=== PATIENT | male | born 1945 | race Caucasian/White ===

== ENCOUNTER 2018-04-10 08:39 | Emergency (ER) | payer OTHER ==
[2018-04-10] MEDS ORDERED: ATROPINE SULF 1 MG/10 ML SYR IV ONE (08:51)
[2018-04-10 09:07] LABS: Absolute Lymphocytes (CBC) 1.4 K/uL (0.7-4.9); Absolute Monocytes 0.6 K/uL (0.1-1.3); Absolute Neutrophil 2.9 K/uL (1.8-8.0); Basophils % 1.2 % (0-1.3); Eosinophils % 1.9 % (0-4.4); Hematocrit 35.8 % (39.6-49.0); MCV 86.3 fL (80-100); Monocytes % 12.1 % (3.3-12.3); RBC Red Blood Cell Count 4.15 M/uL (4.33-5.43)
[2018-04-10 09:39] LABS: Potassium 3.9 mmol/L (3.5-5.1)
[2018-04-10 09:41] LABS: Thyroid Stimulating Hormone 4.08 uIU/mL (0.36-3.74)
[2018-04-10] MEDS ORDERED: NA CHLORIDE 0.9% 500 ML ONE (09:57)
--- NOTE | 2018-04-10 10:06 | ER ---
Nurse's Notes [facility] Name: Demond Tobin Age: 73 yrs Sex: Male : 1945 Arrival Date: 04/10/2018 Time: 08:42 Bed 4 Private MD: Diagnosis: Bradycardia, unspecified;Subclinical Hypothyroidism;Dehydration Presentation: 04/10 08:42 Presenting complaint: Patient states: Sent from Dr. Horton' office for low heart rate ss and possibly transfer to [facility] for pacemaker placement. Transition of care: [employer] [facility] [employer] office (Dr. Horton). Onset of symptoms is unknown. Risk Assessment: Do you want to hurt yourself or someone else? Patient reports no desire to harm self or others. Initial Sepsis Screen: Does the patient meet any 2 criteria? No. Patient's initial sepsis screen is negative. Does the patient have a suspected source of infection? No. Patient's initial sepsis screen is negative. Care prior to arrival: None. 08:42 Method Of Arrival: Wheelchair ss 08:42 Acuity: TOMY 2 ss Historical: - Allergies: 09:11 No Known Allergies; ph - Home Meds: 09:11 amlodipine oral [Active]; Metformin Oral [Active]; Xarelto Oral [Active]; ph - PMHx: 08:57 Atrial Fib; Diabetes - IDDM; Hypertension; bradycardia; ss 10:52 Diabetes - NIDDM; sg - Immunization history:: Adult Immunizations up to date. - Social history:: Smoking status: Patient/guardian denies using tobacco. - Family history:: not pertinent. - Ebola Screening: : Patient denies exposure to infectious person Patient denies travel to an Ebola-affected area in the 21 days before illness onset. - Hospitalizations: : No recent hospitalization is reported. Screenin:03 Abuse screen: Denies threats or abuse. Denies injuries from another. Nutritional ph screening: No deficits noted. Tuberculosis screening: No symptoms or risk factors identified. Fall Risk None identified. Assessment: 08:50 General: Appears in no apparent distress. comfortable, slender, well groomed, Behavior ph is calm, cooperative, appropriate for age. Pain: Denies pain. Neuro: Level of Consciousness is awake, alert, obeys commands, Oriented to person, place, time, situation, Denies weakness dizziness. Cardiovascular: Reports fatigue, Denies chest pain, lightheadedness, nausea, palpitations, shortness of breath, Capillary refill < 3 seconds in bilateral fingers Patient's skin is warm and dry. Rhythm is sinus bradycardia. Respiratory: Airway is patent Respiratory effort is even, unlabored, Respiratory pattern is regular, symmetrical. GI: No signs and/or symptoms were reported involving the gastrointestinal system. Patient currently denies nausea, vomiting. Derm: Skin is intact, is healthy with good turgor, Skin is pink, warm \T\ dry. Musculoskeletal: Circulation, motion, and sensation intact. Range of motion: intact in all extremities. 09:36 Reassessment: Patient appears in no apparent distress at this time. Patient and/or hb family updated on plan of care and expected duration. Pain level reassessed. Patient is alert, oriented x 3, equal unlabored respirations, skin warm/dry/pink. HR 40-55, Dr. Acharya aware. 09:55 Reassessment: HR 30s, Dr. Acharya aware. hb 10:30 Reassessment: Patient appears in no apparent distress at this time. Patient and/or sg family updated on plan of care and expected duration. Pain level reassessed. Patient is alert, oriented x 3, equal unlabored respirations, skin warm/dry/pink. acceptance to transferring facility at this time, report has been called, pt and pt family updated on POC, awaiting transport, no new orders received, will continue to monitor Patient denies pain at this time. Cardiovascular: Capillary refill < 3 seconds in bilateral fingers Patient's skin is warm and dry. Rhythm is sinus bradycardia. Respiratory: Airway is patent Respiratory effort is even, unlabored, Respiratory pattern is regular, symmetrical. Derm: Skin is pink, warm \T\ dry. Vital Signs: 08:45 BP 182 / 63; Pulse 35; Resp 16; Temp 97.7; Pulse Ox 99% on R/A; Weight 111.58 kg; ph Height 6 ft. 0 in. (182.88 cm); Pain 0/10; 09:35 BP 153 / 91; Pulse 43; Resp 15; Pulse Ox 100% on R/A; hb 10:00 BP 152 / 91; Pulse 36; Resp 16; Pulse Ox 100% on R/A; hb 10:30 BP 159 / 69; Pulse 36 MON; Resp 14 S; Temp 97.7; Pulse Ox 99% ; Pain 0/10; sg 08:45 Body Mass Index 33.36 (111.58 kg, 182.88 cm) ph 10:30 notified of pt VS sg ED Course: 08:42 Patient arrived in ED. rn 08:42 Rubén Acharya MD is Attending Physician. rn 08:50 Inserted saline lock: 20 gauge in right antecubital area, using aseptic technique. ph Blood collected. 08:51 EKG done, by ED staff, reviewed by Rubén Acharya MD. em1 08:56 Triage completed. ss 08:57 Arm band placed on right wrist. ss 09:02 Patient has correct armband on for positive identification. Placed in gown. Bed in low ph position. Call light in reach. Side rails up X 1. lead project engineer on. Pulse ox on. NIBP on. 09:06 EKG done, by manager technical. reviewed by Rubén Acharya MD Repeat EKG. at1 10:43 Eduar Armstrong RN is Primary Nurse. sg 11:09 pt report given to JENISE Fleming. sg Administered Medications: 08:55 Drug: Atropine 0.5 mg Route: IVP; Site: right antecubital; ph 09:16 Follow up: Response: No adverse reaction; Cardiac rhythm is unchanged; Hr increased to ph 50, rhythm remains sinus odell 09:58 Drug: NS 0.9% 500 ml Route: IV; Rate: bolus; Site: right antecubital; ss 10:45 Follow up: Response: No adverse reaction; IV Status: Completed infusion; IV Intake: sg 500ml Intake: 10:45 IV: 500ml; Total: 500ml. sg Outcome: 10:06 ER care complete, transfer ordered by . rn 11:58 Patient left the ED. ss Signatures: Eduar Armstrong, RN JENISE sg Rubén Acharya MD MD rn Martinez, Eric em1 Ira Whitfield RN RN Anastasia Teran, residential sales manager EKG Tat1 Maria Esther Gonsalez RN RN Erlinda Noe RN RN hb
--- NOTE | 2018-04-10 10:06 | EDPHYS ---
Physician Documentation [facility] Name: Demond Tobin Age: 73 yrs Sex: Male : 1945 Arrival Date: 04/10/2018 Time: 08:42 Bed 4 Private MD: ED Physician Rubén Acharya HPI: 04/10 08:43 This 73 yrs old Male presents to ER via Unassigned with complaints of rn dizziness, slow heart rate. 08:43 The patient presents with dizziness, lightheadedness. Onset: The symptoms/episode rn began/occurred at an unknown time. Modifying factors: The symptoms are alleviated by nothing, the symptoms are aggravated by standing up. Severity of symptoms: At their worst the symptoms were mild in the emergency department the symptoms have improved. The patient has experienced similar episodes in the past. The patient has been recently seen by a physician:. Sent here by Dr. Horton for transfer for pacemaker placement, unable to perform here, patient has been told for last 1.5 years needs pacemaker, has put it off, lately with dizziness when standing, no chest pain/sob/syncope, HR consistently in 30s, feels fine right now, has Afib, on xarelto.. Historical: - Allergies: 09:11 No Known Allergies; ph - Home Meds: 09:11 amlodipine oral [Active]; Metformin Oral [Active]; Xarelto Oral [Active]; ph - PMHx: 08:57 Atrial Fib; Diabetes - IDDM; Hypertension; bradycardia; ss 10:52 Diabetes - NIDDM; sg - Immunization history:: Adult Immunizations up to date. - Social history:: Smoking status: Patient/guardian denies using tobacco. - Family history:: not pertinent. - Ebola Screening: : Patient denies exposure to infectious person Patient denies travel to an Ebola-affected area in the 21 days before illness onset. - Hospitalizations: : No recent hospitalization is reported. ROS: 08:43 Constitutional: Negative for fever, chills, and weight loss, Eyes: Negative for injury, rn pain, redness, and discharge, Neck: Negative for injury, pain, and swelling, Cardiovascular: Negative for chest pain, palpitations, and edema, Respiratory: Negative for shortness of breath, cough, wheezing, and pleuritic chest pain, Abdomen/GI: Negative for abdominal pain, nausea, vomiting, diarrhea, and constipation, MS/Extremity: Negative for injury and deformity, Skin: Negative for injury, rash, and discoloration, Neuro: Negative for headache, weakness, numbness, tingling, and seizure. Exam: 08:43 Constitutional: This is a well developed, well nourished patient who is awake, alert, rn and in no acute distress. Head/Face: Normocephalic, atraumatic. Neck: Trachea midline, no thyromegaly or masses palpated, and no cervical lymphadenopathy. Cardiovascular: irregular, bradycardic, no murmur Respiratory: Lungs have equal breath sounds bilaterally, clear to auscultation and percussion. No rales, rhonchi or wheezes noted. No increased work of breathing, no retractions or nasal flaring. Abdomen/GI: Soft, non-tender. No distension or tympany. No guarding or rebound. No evidence of tenderness throughout. MS/ Extremity: Pulses equal, no cyanosis. Neurovascular intact. Full, normal range of motion. Equal circumference. Neuro: Awake and alert, GCS 15, oriented to person, place, time, and situation. Cranial nerves II-XII grossly intact. Motor strength 5/5 in all extremities. Sensory grossly intact. Vital Signs: 08:45 BP 182 / 63; Pulse 35; Resp 16; Temp 97.7; Pulse Ox 99% on R/A; Weight 111.58 kg; ph Height 6 ft. 0 in. (182.88 cm); Pain 0/10; 09:35 BP 153 / 91; Pulse 43; Resp 15; Pulse Ox 100% on R/A; hb 10:00 BP 152 / 91; Pulse 36; Resp 16; Pulse Ox 100% on R/A; hb 10:30 BP 159 / 69; Pulse 36 MON; Resp 14 S; Temp 97.7; Pulse Ox 99% ; Pain 0/10; sg 08:45 Body Mass Index 33.36 (111.58 kg, 182.88 cm) ph 10:30 notified of pt VS sg MDM: 08:42 Patient medically screened. rn 10:04 Differential diagnosis: cardiac arrhythmia, idiopathic dizziness, near-syncope, rn bradycardia. Data reviewed: vital signs, nurses notes, lab test result(s), EKG, and as a result, I will admit patient. Counseling: I had a detailed discussion with the patient and/or guardian regarding: the historical points, exam findings, and any diagnostic results supporting the discharge/admit diagnosis, lab results, the need for further work-up and treatment in the hospital, the need to transfer to another facility, for higher level of care, [facility] does not immediately have the required specialist. ED course: Pt asymptomatic, good response to atropine, currently HR in 40s, transfer under way to [facility] for pacemaker.. 04/10 08:43 Order name: CBC with Diff; Complete Time: 09:42 rn 04/10 08:43 Order name: Basic Metabolic Panel; Complete Time: 09:42 rn 04/10 08:43 Order name: Troponin (emerg Dept Use Only); Complete Time: 09:42 rn 04/10 08:43 Order name: TSH; Complete Time: 09:42 rn 04/10 08:43 Order name: T4 Free; Complete Time: 09:42 rn 04/10 08:43 Order name: IV Start; Complete Time: 08:53 rn 04/10 08:43 Order name: EKG; Complete Time: 08:44 rn 04/10 08:43 Order name: EKG - Nurse/Tech; Complete Time: 08:51 rn 04/10 09:34 Order name: EKG Electrocardiogram EDMS Administered Medications: 08:55 Drug: Atropine 0.5 mg Route: IVP; Site: right antecubital; ph 09:16 Follow up: Response: No adverse reaction; Cardiac rhythm is unchanged; Hr increased to ph 50, rhythm remains sinus odell 09:58 Drug: NS 0.9% 500 ml Route: IV; Rate: bolus; Site: right antecubital; ss 10:45 Follow up: Response: No adverse reaction; IV Status: Completed infusion; IV Intake: sg 500ml Disposition: 04/10/18 10:06 Transfer ordered to [facility]. Diagnosis are Bradycardia, unspecified, Subclinical Hypothyroidism, Dehydration. - Reason for transfer: Higher level of care. - Accepting physician is Dr. Melara. - Condition is Stable. - Problem is an ongoing problem. - Symptoms are unchanged. Signatures: Dispatcher [employer] EDMS Eduar Armstrong RN RN sg Nieto, Roman, MD MD rn Smirch, Shelby, RN RN ss Maria Esther Gonsalez RN RN ph Corrections: (The following items were deleted from the chart) 10:06 10:06 04/10/2018 10:06 Transfer ordered to [facility]. Diagnosis is rn Bradycardia, unspecified. Reason for transfer: Higher level of care. Accepting physician is Dr. Melara. Condition is Stable. Problem is an ongoing problem. Symptoms are unchanged. rn 11:58 10:06 04/10/2018 10:06 Transfer ordered to [facility]. Diagnosis is ss Bradycardia, unspecified; Subclinical Hypothyroidism; Dehydration. Reason for transfer: Higher level of care. Accepting physician is Dr. Melara. Condition is Stable. Problem is an ongoing problem. Symptoms are unchanged. rn
[2018-04-10 12:04] VITALS: TEMP 97.7
[2018-04-10 12:08] VITALS: BP 159/69; O2SAT 99
--- NOTE | 2018-04-10 12:45 | EKG ---
Test Date: 2018-04-10 Test Time: 08:45:02 Blood Typer: LANA MEASUREMENT RESULTS: Intervals: Rate: 37 [place]: QRSD: 144 QT: 520 QTc: 408 [place]: P: [place]: QRS: -11 T: 26 INTERPRETIVE STATEMENTS: Atrial fibrillation with slow ventricular response Right bundle branch block Abnormal ECG Compared to ECG 10/26/2016 11:58:22 No significant changes Electronically Signed On 04-10-18 12:44:12 CDT by Bobby Thompson
--- NOTE | 2018-04-10 12:45 | EKG ---
Test Date: 2018-04-10 Test Time: 08:51:01 Coroner Technician: LANA MEASUREMENT RESULTS: Intervals: Rate: 51 MA: QRSD: 140 QT: 488 QTc: 449 [place]: P: MA: QRS: -28 T: 16 INTERPRETIVE STATEMENTS: Atrial fibrillation with slow ventricular response with premature ventricular or aberrantly conducted complexes Right bundle branch block Abnormal ECG Compared to ECG 04/10/2018 08:45:02 Ventricular premature complex(es) now present Electronically Signed On 04-10-18 12:44:10 CDT by Bobby Thompson
== END 2018-04-10 11:58 | disposition short-term general hospital (02) ==
LOC: ER 08:39
DX: R00.1 Bradycardia, unspecified (principal); E86.0 Dehydration; E02 Subclinical iodine-deficiency hypothyroidism; I10 Essential (primary) hypertension; E11.9 Type 2 diabetes mellitus without complications; I48.91 Unspecified atrial fibrillation; Z79.01 Long term (current) use of anticoagulants
CPT/HCPCS: 36415; 80048; 84439; 84443; 84484; 85025; 93005; 96361; 96374; 99284

== ENCOUNTER 2018-07-03 07:17 | Day surgery (SDC) | payer OTHER ==
--- OUTSIDE RECORDS SUMMARY | 2018-07-03 07:20 | XMS REPORT | Clinical Summary ---
:1945 Author Organization [facility] Address [address] [place] [address] Care Team Providers Name Role Phone Asked, No Pcp Primary Care Provider Unavailable Allergies No Known Allergies Medications Medication Sig Dispensed Refills Start Date End Date Status zolpidem (AMBIEN) 10 Take 10 mg by 0 Active mg tablet mouth nightly. atorvastatin Take 40 mg by 0 Active (LIPITOR) 40 MG mouth daily. tablet rivaroxaban (XARELTO) Take 20 mg by 0 Active 20 mg tablet mouth daily. amLODIPine (NORVASC) Take 5 mg by 0 Active 5 mg tablet mouth daily. metFORMIN Take by mouth 2 (two) times a day with meals. 1,000 mg in the morning 0 Active (GLUCOPHAGE) 1,000 mg 1,500 mg in the evening tablet traMADol (ULTRAM) 50 Take 0.5 tablets 60 tablet 0 04/12/2018 04/26/2018 mg tablet (25 mg total) by mouth every 6 (six) hours as needed for moderate pain for up to 14 days. minocycline (MINOCIN) Take 1 capsule 6 capsule 0 04/12/2018 04/15/2018 100 MG capsule (100 mg total) by mouth 2 (two) times a day for 3 days. Active Problems Problem Noted Date Bradycardia 04/10/2018 Chronic atrial fibrillation 04/10/2018 Bradyarrhythmia 04/10/2018 Encounters Date Type Specialty Care Team Description 04/11/2018 Surgery Procedural Hilaria Hall Pacemaker insertion Cardiology MD Betina new or replacement [37204 (CPT)] 04/10/2018 - Hospital Encounter Cardiology Jinny Winn 04/12/2018 MD Mirtha 04/10/2018 Intake Access N/A after 07/02/2017 Social History Tobacco Use Types Packs/Day Years Used Date Never Assessed Sex Assigned at Date Recorded Not on file Job Start Date Occupation Industry Not on file Not on file Not on file Travel History Travel Start Travel End No recent travel history available. Last Filed Vital Signs Vital Sign Reading Time Taken Blood Pressure 165/90 04/12/2018 9:47 AM CDT Pulse 60 04/12/2018 9:47 AM CDT Temperature 36.6 C (97.9 F) 04/12/2018 9:47 AM CDT Respiratory Rate 20 04/12/2018 9:47 AM CDT Oxygen Saturation 98% 04/12/2018 9:47 AM CDT Inhaled Oxygen Concentration - - Weight 105 kg (232 lb 5 oz) 04/12/2018 6:23 AM CDT Height - - Body Mass Index - - Plan of Treatment Health Maintenance Due Date Last Done Comments COLON CANCER SCREENING 1993 SHINGRIX VACCINE (1 of 2) 1993 ZOSTER VACCINE 2003 PNEUMOCOCCAL POLYSACCHARIDE VACCINE AGE 65 AND OVER 01/07/2008 PNEUMOCOCCAL-13 01/07/2008 INFLUENZA VACCINE 03/21/2018 Implants Implanted Type Area Chemical Supervisor Device Shelf Model / Identifier Expiration Serial / Date [facility] P[facility] Lead Is-1 Bipolar 59cm - [id number] Cardiac Pacing N/A: BOSTON 07/10/2019 [id number] / Implanted: 04/11/2018 (Quantity not on file) Leads or N/A SCIENTIFIC- [id number] / Electrodes or [id number] Accessories Envelope Pcemkr Antbactl Fully Resorb Aigisrxr - [id number] Cardiovascular N/A: [employer] [id number] / Implanted: 04/11/2018 (Quantity not on file) Implants N/A / Generator, Accolade Mri Sr - [id number] PACEMAKERS N/A: BOSTON 2018 [id number] / Implanted: 04/11/2018 (Quantity not on file) N/A SCIENTIFIC- CRM [id number] / [id number] Procedures Procedure Name Priority Date/Time Associated Comments Diagnosis ECG PRE/POST OP Routine 04/12/2018 5:24 Results for this AM CDT procedure are in the results section. POC GLUCOSE Routine 04/11/2018 9:51 Results for this PM CDT procedure are in the results section. XR CHEST 1 VW PORTABLE Routine 04/11/2018 2:25 Results for this PM CDT procedure are in the results section. POC GLUCOSE Routine 04/11/2018 2:08 Results for this PM CDT procedure are in the results section. EP PACEMAKER INSERTION Routine 04/11/2018 1:15 Results for this NEW OR REPLACEMENT PM CDT procedure are in the results section. ECHOCARDIOGRAM 2D Routine 04/11/2018 7:30 Results for this COMPLETE W MMODE AM CDT procedure are in SPECTRAL COLOR DOPPLER the results (96783) section. ECG 12-LEAD Routine 04/11/2018 5:03 Results for this AM CDT procedure are in the results section. XR CHEST 1 VW PORTABLE Routine 04/10/2018 6:57 Results for this PM CDT procedure are in the results section. THYROID STIMULATING Routine 04/10/2018 2:34 Results for this HORMONE PM CDT procedure are in the results section. ZZESTIMATED GFR Routine 04/10/2018 2:34 Results for this PM CDT procedure are in the results section. PHOSPHORUS LEVEL Routine 04/10/2018 2:34 Results for this PM CDT procedure are in the results section. MAGNESIUM LEVEL Routine 04/10/2018 2:34 Results for this PM CDT procedure are in the results section. COMPREHENSIVE METABOLIC Routine 04/10/2018 2:34 Results for this PANEL PM CDT procedure are in the results section. PARTIAL THROMBOPLASTIN Routine 04/10/2018 2:34 Results for this TIME (PTT) PM CDT procedure are in the results section. PROTHROMBIN TIME WITH Routine 04/10/2018 2:34 Results for this INR PM CDT procedure are in the results section. HC COMPLETE BLD COUNT Routine 04/10/2018 2:34 Results for this W/AUTO DIFF PM CDT procedure are in the results section. POC GLUCOSE Routine 04/10/2018 1:00 Results for this PM CDT procedure are in the results section. after 07/02/2017 Results ECG Pre/Post Op-Tomorrow (04/12/2018 5:24 AM CDT) Ventricular rate 67 [facility] Atrial rate 67 [facility] QRSD interval 180 [facility] QT interval 482 [facility] QTC interval 509 [facility] QRS axis 1 -83 [facility] T wave axis 91 [facility] EKG impression Electronic ventricular pacemaker-In automated comparison with ECG of 11-APR-2018 05:03,-Electronic ventricular pacemaker has replaced Idioventricular rhythm-Vent. rate has increased BY36 BPM-Electronically Signed By Esperanza Frank MD ([id number]) on [facility] 04/14/2018 5:19:02 AM Performing Organization Address City/[facility]/Zipcode Phone Number [facility] [address] [place] [address] POC glucose (04/11/2018 9:51 PM CDT)Only the most recent of3 resultswithin the time period is included. POC glucose 111 (H) 65 - 99 mg/dL [facility] DEPARTMENT OF PATHOLOGY Comment: AND GENOMIC MEDICINE [facility] Notified RN Meter ID: [id number] Supervisor [employer]: [place] Performing Organization Address City/[facility] Corporation[facility] Phone Number [facility] DEPARTMENT OF PATHOLOGY AND [address] [place] [address] GENOMIC MEDICINE XR Chest 1 Vw Portable (04/11/2018 2:25 PM CDT)Only the most recent of2 resultswithin the time period is included. Narrative Performed At EXAMINATION:XR CHEST 1 VW PORTABLE [facility] CLINICAL HISTORY:Pneumothorax COMPARISON:04/10/2018 IMPRESSION: 1.A left subclavian unipolar pacemaker has been placed since the previous study. There is no evidence of pneumothorax. 2.The heart is moderately enlarged. The aorta is minimally atherosclerotic. 3.Patchy volume loss and infiltration are present at both lung bases and are slightly increased compared to the previous study. There are no pleural effusions. [facility]-[id number] Procedure Note Interface, Radiology Results Incoming - 04/11/2018 3:16 PM CDT EXAMINATION: XR CHEST 1 VW PORTABLE CLINICAL HISTORY: Pneumothorax COMPARISON: 04/10/2018 IMPRESSION: 1. A left subclavian unipolar pacemaker has been placed since the previous study. There is no evidence of pneumothorax. 2. The heart is moderately enlarged. The aorta is minimally atherosclerotic. 3. Patchy volume loss and infiltration are present at both lung bases and are slightly increased compared to the previous study. There are no pleural effusions. [facility]-[id number] Performing Organization Address [facility] Corporationcofl Phone Number [facility] [address] [place] [address] Cv electrophysiology procedure (04/11/2018 1:15 PM CDT) Narrative Performed At TITLE OF PROCEDURE: CUPID Single-chamber pacemaker. PREOPERATIVE DIAGNOSES: 1.Chronic atrial fibrillation. 2.Symptomatic bradycardia. 3.Complete heart block causing #2. POSTOPERATIVE DIAGNOSES: 1.Chronic atrial fibrillation. 2.Symptomatic bradycardia. 3.Complete heart block causing #2. PROCEDURES PREFORMED: 1.IV conscious sedation. 2.Single-chamber pacemaker placement. BRIEF HISTORY AND CLINICAL BACKGROUND: This is a 73-year-old man who is a patient of Dr. Giuseppe Horton.Dr. Horton called me yesterday because the patient came into his office with a several day history of weakness and dizziness.He was noted to have a heart rate of 30 to 33 bpm, very regular, presumptively in a complete heart block with a junctional escape beat. The patient was sent to [facility] and transferred to [facility] for permanent pacemaker.Echocardiogram performed this morning preliminarily shows a normal ejection fraction. The patient comes in for a single chamber pacemaker placement. PROCEDURE: Informed consent was obtained.Intravenous antibiotics were infused appropriately.The chest was prepped and draped in the usual sterile fashion and local anesthesia was achieved with 1% lidocaine.An upper extremity venogram was performed to identify the location of the axillary and subclavian vein and access was achieved.Guide wires were introduced under fluoroscopic guidance and advanced into the inferior vena cava. Using a sharp knife, cautery, and blunt dissection, a pocket was formed below the plane of the pectoralis fascia.The RV and atrial leads were placed into the venous system using standard technique.The RV pace/sense lead was placed into the RV apex and tested.After the thresholds were deemed adequate the lead was anchored in place.Maximum output pacing was performed to ensure that there was no diaphragmatic stimulation, and none was seen.The lead was anchored in place using 0-Ethibond sutures around the lead collar. A bipolar screw-in lead was affixed into the right atrium.Sensing and pacing thresholds were then performed.After they were found to be adequate, maximum output pacing was performed to ensure that there was no diaphragmatic stimulation, and none was seen.The lead was anchored in place using 0-Ethibond sutures around the lead collar. Fluoroscopy was repeated to ensure proper lead placement.The pacemaker pocket was visually, manually, and radiographically inspected to ensure there were no gauze or sponges in the pocket.It was then washed using antibiotic solution. Gloves and drapes were changed as needed.The pacemaker generator packet was then opened and was attached to the leads and the set screws were tightened. Each lead was gently tugged upon to ensure it was affixed within the header. After proper pacemaker function was confirmed, the lead slack and pacemaker were placed in the pocket.The pacemaker was anchored to the pectoralis muscle using 0-Ethibond suture.The skin incision was then closed in layers using 0-Vicryl sutures.Final skin closure was achieved with stainless steel miko and skin adhesive. COMPLICATIONS: None. FINDINGS: 1.The right ventricular apical pacing lead is a [place] [employer] MRI, model 7742, serial number [id number].Measured R-waves 10 millivolts, pacing threshold 0.5 volt, current 0.6 mA, impedance 848 ohms. 2.The pacemaker is a [place] [employer] Accolade model L310, serial number [id number]. 3.Estimated blood loss less than 10 mL. CONCLUSIONS: Successful single chamber pacemaker. RECOMMENDATIONS: IV antibiotics and resume oral anticoagulation in 24 to 48 hours. Performing Organization Address City/State/[facility] Corporationcode Phone Number [employer] [address] [place] [address] Echocardiogram complete w contrast and 3D if needed (04/11/2018 7:30 AM CDT) Narrative Performed At [facility] Echocardiography Report [address] [place] [address] Pat.Name:JOON LYON Pat.ID:[id number] .Date: 04/11/2018 Refer.MD:JINNY WINN MD Exam Time: 7:04:00 AMStudy Type:Routine Echo Height:71inWeight: 242lb BSA: 2.29 m2 DOBAge:1945,73Y Sex: MALEBP:167/74 HR:30 bpmSonogrphr: Rosy Cartwright RDCS Pat. Stat.:Inpatient Room:[facility] Study Status:Final Echo Event ID:[id number] Order ID:[id number] Reason for Study:ARRYTHMIA, AFIB Procedures:2D Echo, Colorflow Doppler, Intravenous Optison Contrast SUMMARY: LV size is mildly enlarged. LV EF is normal. RV systolic function is normal. Estimated PA systolic pressure is 38-43 mmHg, assuming a mean RAP of 15-20 mmHg. FINDINGS: LV: LV size is mildly enlarged. There is mild eccentric LV hypertrophy.LV EF is normal. Overall wall motion is normal.Estimated EF is 60-64%. RV: RV size is normal. RV systolic function is normal. LA: LA volume is moderately enlarged. RA: RA volume is severely enlarged. AO: Aortic root diameter is normal. DARRELL: Trace posterior pericardial effusion. AV: Mild thickening and calcification of AV leaflets. MV: Mild mitral annular calcification. PV: No structural PV abnormalities noted. TV: No structural TV abnormalities noted. Mild tricuspid regurgitation Garza: Unable to assess diastolic function. Other:Estimated PA systolic pressure is 38-43 mmHg, assuming a meanRAP of 15-20 mmHg. MEASUREMENTS: 2D Parasternal Long Capron Ao An2.2 cmLVPWd1 cm LVOT 2.2 cmLA Ds4.9 cm LVIDd6.1 cmIndex2.7 cm/m Ao Rtd 4 cm Index1.7 cm/m LVIDs3.8 cm LV Srdn447.8 g(122-174) LV%fs 38.2 % LVM Wlint926.3 g/m2 IVSd 1.1 cmRWT0.3 LA Sng Plane LA Area 29.7 cm2(8.8-23.4) LA Vol97.1 ml Index42.4 ml/m LA LngAx 7.8 cm RA Sng Plane RA Area 31.2 cm2(8.3-19.5) RA Vol 113.7 ml Index49.6 ml/m RA LngAx 7.3 cm DOPPLER LVOT Stroke Vol LVOT 2.2 cmLVOT CO4.1 l/min LVOT TVI32.7 cmLVOT CI1.8 l/m/m2 LVOT Tm415 drlxVU62 bpm LVOT SV124.2 ml Signed 04/11/2018 03:10 PM Larry Gonzalez M.D. Procedure Note Interface, Radiology Results In - 04/11/2018 3:10 PM CDT Echocardiography Report [address] [place] [address] Pat.Name: JOON LYON Pat.ID: [id number] St.Date: 04/11/2018 Refer.MD: JINNY WINN MD Exam Time: 7:04:00 AM Study Type:Routine Echo Height: 71in Weight: 242lb BSA: 2.29 m2 Age: 3 1945,73Y Sex: MALE BP: 167/74 HR: 30 bpm Sonogrphr: Rosy Cartwright RDCS Pat. Stat.:Inpatient Room: [facility] Study Status:Final Echo Event ID:[id number] Order ID: [id number] Reason for Study:ARRYTHMIA, AFIB Procedures:2D Echo, Colorflow Doppler, Intravenous Optison Contrast SUMMARY: LV size is mildly enlarged. LV EF is normal. RV systolic function is normal. Estimated PA systolic pressure is 38-43 mmHg, assuming a mean RAP of 15-20 mmHg. FINDINGS: LV: LV size is mildly enlarged. There is mild eccentric LV hypertrophy. LV EF is normal. Overall wall motion is normal. Estimated EF is 60-64%. RV: RV size is normal. RV systolic function is normal. LA: LA volume is moderately enlarged. RA: RA volume is severely enlarged. AO: Aortic root diameter is normal. DARRELL: Trace posterior pericardial effusion. AV: Mild thickening and calcification of AV leaflets. MV: Mild mitral annular calcification. PV: No structural PV abnormalities noted. TV: No structural TV abnormalities noted. Mild tricuspid regurgitation Garza: Unable to assess diastolic function. Other: Estimated PA systolic pressure is 38-43 mmHg, assuming a mean RAP of 15-20 mmHg. MEASUREMENTS: 2D Parasternal Long Capron Ao An 2.2 cm LVPWd 1 cm LVOT 2.2 cm LA Ds 4.9 cm LVIDd 6.1 cm Index 2.7 cm/m Ao Rtd 4 cm Index 1.7 cm/m LVIDs 3.8 cm LV Mass 270.8 g (122-174) LV%fs 38.2 % LVM Index 118.3 g/m2 IVSd 1.1 cm RWT 0.3 LA Sng Plane LA Area 29.7 cm2 (8.8-23.4) LA Vol 97.1 ml Index 42.4 ml/m LA LngAx 7.8 cm RA Sng Plane RA Area 31.2 cm2 (8.3-19.5) RA Vol 113.7 ml Index 49.6 ml/m RA LngAx 7.3 cm DOPPLER LVOT Stroke Vol LVOT 2.2 cm LVOT CO 4.1 l/min LVOT TVI 32.7 cm LVOT CI 1.8 l/m/m2 LVOT Tm 415 msec HR 33 bpm LVOT SV 124.2 ml Signed 04/11/2018 03:10 PM Larry Gonzalez M.D. Performing Organization Address City/State/Zipcode Phone Number [facility] [address] [place] [address] ECG 12 lead (04/11/2018 5:03 AM CDT) Ventricular rate 31 [facility] Atrial rate 31 [facility] QRSD interval 152 [facility] QT interval 550 [facility] QTC interval 395 [facility] QRS axis 1 65 [facility] T wave axis 36 [facility] EKG impression Idioventricular rhythm-Right bundle branch [facility] block-Abnormal ECG-In automated comparison with ECG of 11-APR-2018 05:02,-No significant change was found- Performing Organization Address City/[facility] Corporationcode Phone Number [facility] [address] [place] [phone] Estimated GFR (04/10/2018 2:34 PM CDT) GFR Non Af Amer 73 mL/min/1.73 m2 [facility] DEPARTMENT OF PATHOLOGY AND GENOMIC MEDICINE GFR Af Amer 88 mL/min/1.73 m2 [facility] DEPARTMENT OF Comment: PATHOLOGY AND GENOMIC Chronic kidney disease: <60 mL/min/1.73m2 MEDICINE Kidney failure: <15 mL/min/1.73m2 The estimated GFR is calculated from the IDMS-traceable Modification of Diet in Renal Disease Equation. The accuracy of the calculation is poor when the creatinine is normal. Calculated values >90 mL/min/1.73m2 are not reported. This equation has not been validated in children (<18 years), women, the elderly (>70 years), or ethnic groups other than Caucasians and Americans. Specimen Plasma specimen Performing Organization Address [facility] Corporationcode Phone Number [facility] DEPARTMENT OF PATHOLOGY AND [address] [place] [phone] [facility] Partial thromboplastin time, activated (04/10/2018 2:34 PM CDT) PTT 32.5 23.0 - 36.0 sec [facility] DEPARTMENT OF PATHOLOGY Comment: AND 72xuan MEDICINE PTT therapeutic range for unfractionated heparin is 61.0-112.0 seconds which corresponds to Anti-Xa 0.3-0.7 U/ml. Specimen Blood Performing Organization Address [facility]/Zipcode Phone Number [facility] DEPARTMENT OF PATHOLOGY AND [address] [place] [phone] [facility] Prothrombin time with INR (04/10/2018 2:34 PM CDT) Prothrombin time 18.7 (H) 12.0 - 15.0 sec [facility] DEPARTMENT OF PATHOLOGY AND GENOMIC MEDICINE INR 1.5 [facility] DEPARTMENT OF Comment: PATHOLOGY AND GENOMIC The International Normalized Ratio (INR) is a therapeutic MEDICINE monitoring tool for patients who are stable on oral anticoagulant therapy. An INR of 2.0-3.0 is suggested for deep vein thrombosis/pulmonary embolism. Specimen Blood Performing Organization Address City/State/Zipcode Phone Number [facility] DEPARTMENT OF PATHOLOGY AND [address] [place] [address] GENOMIC MEDICINE CBC with platelet and differential (04/10/2018 2:34 PM CDT) WBC 4.17 (L) 4.50 - 11.00 k/uL [facility] DEPARTMENT OF PATHOLOGY AND GENOMIC MEDICINE RBC 3.97 (L) 4.40 - 6.00 m/uL [facility] DEPARTMENT OF PATHOLOGY AND GENOMIC MEDICINE HGB 11.0 (L) 14.0 - 18.0 g/dL [facility] DEPARTMENT OF PATHOLOGY AND GENOMIC MEDICINE HCT 34.7 (L) 41.0 - 51.0 % [facility] DEPARTMENT OF PATHOLOGY AND GENOMIC MEDICINE MCV 87.4 82.0 - 100.0 fL [facility] DEPARTMENT OF PATHOLOGY AND GENOMIC MEDICINE MCH 27.7 27.0 - 34.0 pg [facility] DEPARTMENT OF PATHOLOGY AND GENOMIC MEDICINE MCHC 31.7 31.0 - 37.0 g/dL [facility] DEPARTMENT OF PATHOLOGY AND GENOMIC MEDICINE RDW - SD 47.9 37.0 - 55.0 fL [facility] DEPARTMENT OF PATHOLOGY AND GENOMIC MEDICINE MPV 13.0 8.8 - 13.2 fL [facility] DEPARTMENT OF PATHOLOGY AND GENOMIC MEDICINE Platelet count 99 (L) 150 - 400 k/uL [facility] DEPARTMENT OF PATHOLOGY AND GENOMIC MEDICINE Nucleated RBC 0.00 /100 WBC [facility] DEPARTMENT OF PATHOLOGY AND GENOMIC MEDICINE Neutrophils 50.5 39.0 - 69.0 % [facility] DEPARTMENT OF PATHOLOGY AND GENOMIC MEDICINE Lymphocytes 35.7 25.0 - 45.0 % [facility] DEPARTMENT OF PATHOLOGY AND GENOMIC MEDICINE Monocytes 12.2 (H) 0.0 - 10.0 % [facility] DEPARTMENT OF PATHOLOGY AND GENOMIC MEDICINE Eosinophils 1.2 0.0 - 5.0 % [facility] DEPARTMENT OF PATHOLOGY AND GENOMIC MEDICINE Basophils 0.2 0.0 - 1.0 % [facility] DEPARTMENT OF PATHOLOGY AND GENOMIC MEDICINE Immature granulocytes 0.2Comment: 0.0 - 1.0 % [facility] DEPARTMENT OF "Immature PATHOLOGY AND GENOMIC granulocytes" MEDICINE (promyelocytes, myelocytes, metamyelocytes) Specimen Blood Performing Organization Address City/State/[facility] Corporation[facility] Phone Number [facility] DEPARTMENT OF PATHOLOGY AND [address] [place] [phone] [place] [address] Thyroid stimulating hormone (04/10/2018 2:34 PM CDT) TSH 2.27 0.27 - 4.20 uIU/mL [facility] DEPARTMENT OF PATHOLOGY AND GENOMIC MEDICINE Specimen Plasma specimen Performing Organization Address [facility] Corporationcofl Phone Number [facility] DEPARTMENT OF PATHOLOGY AND [address] [place] [address] MEDICINE Phosphorus level (04/10/2018 2:34 PM CDT) Phosphorus 3.1 2.4 - 4.5 mg/dL [facility] DEPARTMENT OF PATHOLOGY AND GENOMIC MEDICINE Specimen Plasma specimen Performing Organization Address [facility] Phone Number [facility] DEPARTMENT OF PATHOLOGY AND [address] [place] [address] [facility] Magnesium level (04/10/2018 2:34 PM CDT) Magnesium 1.8 1.6 - 2.4 mg/dL [facility] DEPARTMENT OF PATHOLOGY AND GENOMIC MEDICINE Specimen Plasma specimen Performing Organization Address [facility] Phone Number [facility] DEPARTMENT OF PATHOLOGY AND [address] [place] [address] MEDICINE Comprehensive metabolic panel (04/10/2018 2:34 PM CDT) Sodium 140 135 - 148 mEq/L [facility] DEPARTMENT OF PATHOLOGY AND GENOMIC MEDICINE Potassium 4.4 3.5 - 5.0 mEq/L [facility] DEPARTMENT OF PATHOLOGY AND GENOMIC MEDICINE Chloride 106 98 - 112 mEq/L [facility] DEPARTMENT OF PATHOLOGY AND GENOMIC MEDICINE CO2 23 (L) 24 - 31 mEq/L [facility] DEPARTMENT OF PATHOLOGY AND GENOMIC MEDICINE Anion gap 11@ANIO 7 - 15 mEq/L [facility] DEPARTMENT OF PATHOLOGY AND GENOMIC MEDICINE BUN 18 8 - 23 mg/dL [facility] DEPARTMENT OF PATHOLOGY AND GENOMIC MEDICINE Creatinine 1.0 0.7 - 1.2 mg/dL [facility] DEPARTMENT OF PATHOLOGY AND GENOMIC MEDICINE Glucose 104 (H) 65 - 99 mg/dL [facility] DEPARTMENT OF PATHOLOGY AND GENOMIC MEDICINE Calcium 8.9 8.8 - 10.2 mg/dL [facility] DEPARTMENT OF PATHOLOGY AND GENOMIC MEDICINE Protein 7.6 6.3 - 8.3 g/dL [facility] DEPARTMENT OF Comment: PATHOLOGY AND GENOMIC [place] 4.6-7.0 g/dL MEDICINE 1 week 4.4-7.6 g/dL 7 months-1year5.1-7.3 g/dL 1-2 years5.6-7.5 g/dL >3 years6.0-8.0 g/dL 18-150 6.3-8.3 g/dL Albumin 3.5 3.5 - 5.0 g/dL [facility] DEPARTMENT OF PATHOLOGY AND GENOMIC MEDICINE A/G ratio 0.9 0.7 - 3.8 [facility] DEPARTMENT OF PATHOLOGY AND GENOMIC MEDICINE Alkaline phosphatase 93 40 - 129 U/L [facility] DEPARTMENT OF PATHOLOGY AND GENOMIC MEDICINE AST 22 10 - 50 U/L [facility] DEPARTMENT OF PATHOLOGY AND GENOMIC MEDICINE ALT 19 5 - 50 U/L [facility] DEPARTMENT OF PATHOLOGY AND GENOMIC MEDICINE Total bilirubin 0.9 0.0 - 1.2 mg/dL [facility] DEPARTMENT OF PATHOLOGY AND GENOMIC MEDICINE Specimen Plasma specimen Performing Organization Address City/State/Zipcode Phone Number [facility] DEPARTMENT OF PATHOLOGY AND [address] [place] [address] GENOMIC MEDICINE after 07/02/2017 Insurance Payer Benefit Plan / Group Subscriber ID Type Phone Address MEDICARE MEDICARE PART A AND B xxxxxxxxxx Medicare [place], [place] COMMERCIAL MISC MISC COMMERCIAL xxxxxxxxxxxx Commercial Advance Directives Patient has advance care planning documents, and code status on file. For more information, please contact:Ramon Montes De [address]ca[address] [place] [address] Code Status Date Activated Date Inactivated Comments Full Code 04/10/2018 2:33 PM 04/12/2018 3:53 PM Code Status decision reached by: Patient
[2018-07-03] MEDS ORDERED: NA CHLORIDE 0.9% 1,000 ML ONE (07:34)
[2018-07-03 08:07] VITALS: TEMP 98.7; O2SAT 94
[2018-07-03] MEDS ORDERED: PROPOFOL 200 MG/20 ML VIAL IV ONE (09:20)
[2018-07-03] MEDS ORDERED: LIDOCAINE 1% MPF 5 ML VIAL ONE (09:20)
[2018-07-03 10:51] VITALS: BP 138/56
--- NOTE | 2018-07-03 11:18 | ENDO RPT ---
[address], [address] COLONOSCOPY PROCEDURE REPORT EXAM DATE: 07/03/2018 PATIENT NAME: Demond Tobin MR #: [id number] BIRTHDATE: 1945 ATTENDING: Ray Ruiz Dr STATUS: outpatient MESSAGING ARCHITECT: Lisa Canas and Edel Rocha RN INDICATIONS: The patient is a 73 yr old Male here for a colonoscopy due to personal history of colon polyps PROCEDURE PERFORMED: Colonoscopy with snare polypectomy MEDICATIONS: Per Anesthesia. ESTIMATED BLOOD LOSS: None CONSENT: The patient understands the risks and benefits of the procedure and understands that these risks include, but are not limited to: sedation, allergic reaction, infection, perforation and/or bleeding. Alternative means of evaluation and treatment include, among others: physical exam, x-rays, and/or surgical intervention. The patient elects to proceed with this endoscopic procedure. DESCRIPTION OF PROCEDURE: During intra-op preparation period all mechanical medical equipment was checked for proper function. Hand hygiene and appropriate measures for infection prevention was taken. Procedure, possible complications, alternatives including, but not limited to possibility of bleeding, perforation, tear, infection, sepsis, need for surgery, need for blood transfusion, were explained to the patient. After the risks, benefits and alternatives of the procedure were thoroughly explained, Informed consent was verified, confirmed and timeout was successfully executed by the treatment team. The patient was placed in the left lateral position. A digital rectal exam was performed and revealed external hemorrhoids. After appropriate level of anesthesia, the scope was passed. The [id number] ([id number]) endoscope was introduced through the anus and advanced to the cecum, which was identified by both the appendix and ileocecal valve. The quality of the prep was poor. The instrument was then slowly withdrawn as the colon was fully examined. Scope withdrawal time was 8 minutes. COLON FINDINGS: A sessile polyp measuring 6 mm in size was found in the sigmoid colon. A polypectomy was performed with a cold snare. Small internal and external hemorrhoids were found. Retroflexed views revealed small hemorrhoids. The scope was then completely withdrawn from the patient and the procedure terminated. ADVERSE EVENTS: There were no complications. IMPRESSIONS: 1. 6 mm sessile polyp in the sigmoid colon; polypectomy was performed with a cold snare 2. Small internal and external hemorrhoids 3. Intubation to cecum RECOMMENDATIONS: 1. await biopsy results 2. avoid NSAIDS for 2 weeks 3. fiber rich diet RECALL: No further colonoscopy(s) due to age (73 y.o.) unless alarm symptoms occur. Ray Ruiz Dr eSigned: Ray Ruiz Dr 07/03/2018 10:43 AM cc: Giuliano Zayas CPT CODES: ICD9 CODES: 1. 455.5 External hemorrhoids with other complication 2. 211.3 Benign neoplasm of colon PATIENT NAME: Demond TobinKaterine MR#: [id number]
== END 2018-07-03 11:05 | disposition home or self-care (01) ==
LOC: OR 07:17
PROVIDERS: ATTEND Internal Medicine Gastroenterology
PROC: 0DBN8ZX Excision of Sigmoid Colon, Via Natural or Artificial Opening Endoscopic, Diagnostic (ICD-10-PCS; principal; 2018-07-03 08:00)
DX: D12.5 Benign neoplasm of sigmoid colon (principal); K64.8 Other hemorrhoids; K64.4 Residual hemorrhoidal skin tags; E11.9 Type 2 diabetes mellitus without complications; I10 Essential (primary) hypertension; E78.5 Hyperlipidemia, unspecified; Z86.010 Personal history of colon polyps; Z95.0 Presence of cardiac pacemaker
CPT/HCPCS: 45385; 82962; 88305; J2704; J7030

== ENCOUNTER 2020-01-14 02:01 | Observation (INO) | payer OTHER ==
--- OUTSIDE RECORDS SUMMARY | 2020-01-14 02:03 | XMS REPORT | Clinical Summary ---
:1945 Author Organization [facility] Address [address] [place] [address] Care Team Providers Name Role Phone Asked, Pcp Primary Care Provider Unavailable Allergies No Known Allergies Medications Medication Sig Dispensed Refills Start Date End Date Status zolpidem (AMBIEN) 10 mg Take 10 mg by 0 Active tablet mouth nightly. atorvastatin (LIPITOR) Take 40 mg by 0 Active 40 MG tablet mouth daily. rivaroxaban (XARELTO) Take 20 mg by 0 Active 20 mg tablet mouth daily. amLODIPine (NORVASC) 5 Take 5 mg by 0 Active mg tablet mouth daily. metFORMIN (GLUCOPHAGE) Take by mouth 2 (two) times a day with meals. 1,000 mg in the morning 0 Active 1,000 mg tablet 1,500 mg in the evening Active Problems Problem Noted Date Bradycardia 04/10/2018 Chronic atrial fibrillation 04/10/2018 Bradyarrhythmia 04/10/2018 Social History Tobacco Use Types Packs/Day Years Used Date Never Assessed Sex Assigned at Date Recorded Not on file Job Start Date Occupation Industry Not on file Not on file Not on file Travel History Travel Start Travel End No recent travel history available. Last Filed Vital Signs Not on file Plan of Treatment Health Maintenance Due Date Last Done Comments SHINGLES VACCINES (#1) 1993 65+ PNEUMOCOCCAL VACCINE (1 of 2 - PCV13) 01/07/2008 INFLUENZA VACCINE 03/21/2020 Implants Implanted Type Area Track Oiler Device Shelf Model / Identifier Expiration Serial / Date Lot Ingevity Mri Pacing Lead Is-1 Bipolar 59cm - [id number] Cardiac Pacing N/A: [employer] 07/10/2019 [id number] / Implanted: 04/11/2018 at [facility] (Quantity not on file) Heydi ds or N/A SCIENTIFIC- CRM [id number] / Electrodes or [id number] Accessories Envelope Pcemkr Antbactl Fully Resorb Aigisrxr - [id number] Cardiovascular N/A: [employer] [id number] / Implanted: 04/11/2018 at [facility] (Quantity not on file) Implants N/A / Generator, Accolade Mri Sr - [id number] PACEMAKERS N/A: BOSTO N 11/24/2018 [id number] / Implanted: 04/11/2018 at [facility] (Quantity not on file) N/A SCIENTIFIC- CRM [id number] / [id number] Results Not on fileafter 01/13/2019 Insurance Payer Benefit Plan / Subscriber ID Effective Phone Address T ype Group Dates MEDICARE MEDICARE PART A xxxxxxxxxx 2007-Pres [place], [place] Medicare AND B ent COMMERCIAL MISC MISC COMMERCIAL xxxxxxxxxxxx 2016-Pres Commercial ent Advance Directives For more information, please contact: [phone] Type Date Recorded Patient Facilities Engineer Explanati on Advance Directives, Living Will and Medical Power of Rim Technician Code Status Date Activated Date Inactivated Comments Full Code 04/10/2018 2:33 PM 04/12/2018 3:53 PM Code Status decision reached by: Patient
[2020-01-14] MEDS ORDERED: ASPIRIN 81 MG CHEWABLE TABLET ONE (02:53)
[2020-01-14 03:05] LABS: Basophils % 0.5 % (0-1.3); Hematocrit 36.9 % (39.6-49.0); Lymphocytes % 12.1 % (15.3-44.8); MPV 11.4 fL (7.6-11.3); RBC Red Blood Cell Count 4.41 M/uL (4.33-5.43)
[2020-01-14 03:09] LABS: Protime INR 1.55
[2020-01-14 03:17] LABS: BUN Blood Urea Nitrogen 16 mg/dL (7-18); Bicarbonate 26 mmol/L (21-32); Glucose Level 152 mg/dL (74-106); Lipase 93 U/L (73-393); Magnesium 1.5 mg/dL (1.8-2.4); Potassium 4.1 mmol/L (3.5-5.1); Sodium Level 135 mmol/L (136-145); Troponin (Emerg Dept Use Only) < 0.02 ng/mL (0.0-0.045)
[2020-01-14] MEDS ORDERED: NA CHLORIDE 0.9% 500 ML ONE (03:44)
[2020-01-14] MEDS ORDERED: MAGNESIUM SULFATE 1 gm IVPB 1 GM/100 ML BAG IV ONE (03:48)
[2020-01-14 05:47] LABS: Barbiturates NEGATIVE (NEGATIVE); Benzodiazepines NEGATIVE (NEGATIVE); Cocaine NEGATIVE (NEGATIVE); METHAMPHETAM NEGATIVE (NEGATIVE); Methadone NEGATIVE (NEGATIVE); Opiates NEGATIVE (NEGATIVE); Phencyclidine NEGATIVE (NEGATIVE); THC Cannibis NEGATIVE (NEGATIVE)
[2020-01-14 06:02] LABS: Urine Blood 3+ (NEG); Urine Glucose TRACE (NEG); Urine Protein 3+ (NEG); Urine Specific Gravity >1.030 (1.005-1.030)
--- NOTE | 2020-01-14 07:08 | EKG ---
Test Date: 2020-01-14 Test Time: 02:12:44 Equipment Service Lead: ARLETTE MEASUREMENT RESULTS: Intervals: Rate: 61 IA: QRSD: 172 QT: 460 QTc: 463 [place]: P: IA: QRS: -73 T: 105 INTERPRETIVE STATEMENTS: Demand pacemaker, interpretation is based on intrinsic rhythm Wide QRS rhythm with occasional premature ventricular complexes Left axis deviation Left bundle branch block Abnormal ECG Compared to ECG 04/10/2018 08:51:01 Uncertain supraventricular rhythm now present Left-axis deviation now present Left bundle-branch block now present Atrial fibrillation no longer present Right bundle-branch block no longer present Electronically Signed On 01-14-20 07:07:51 CDT by Bobby Thompson
[2020-01-14] MEDS: INSULIN -REGULAR HUMAN 50 UNIT/0.5 ML ML SQ SCH ×4 (07:30→20:11)
[2020-01-14] MEDS ORDERED: ASPIRIN EC 81 MG TAB PO SCH (09:00)
[2020-01-14 09:34] VITALS: BMI 28.5
[2020-01-14] MEDS ORDERED: PNEUMOCOCCAL VACCINE 0.5 ML IMVAC ONE (10:00)
--- NOTE | 2020-01-14 10:58 | RAD REPORT ---
EXAM DESCRIPTION: RAD - Chest Single View - 01/14/2020 2:48 am CLINICAL HISTORY: CONGESTION COMPARISON: Two view chest January 2016 TECHNIQUE: AP portable chest image was obtained 01/14/2020 2:48 am . FINDINGS: No peripheral mass or consolidation. Single lead pacemaker has been placed since prior [place]. No focal mass or consolidation. Interstitial markings are prominent but not clearly different. He art size is prominent but stable. Vasculature within normal limits. No measurable pleural effusion an d no pneumothorax. No acute bony abnormality seen. No acute aortic findings suspected. IMPRESSION: No acute cardiopulmonary finding confirmed. Prominent interstitial pattern is not significantly different from the comparison study.
--- NOTE | 2020-01-14 11:01 | RAD REPORT ---
EXAM DESCRIPTION: RAD - Elbow Left 3 View - 01/14/2020 7:52 am CLINICAL HISTORY: PAIN, nontraumatic left elbow pain COMPARISON: None. FINDINGS: No fractures identified. No pathologic or destructive bone process. There is no dislocatio n or periosteal reaction noted. Patient has very advanced left elbow joint degenerative change. Rosemarie inal spurs are present at all joint spaces. Prior take ever calcifications are present anterior paula n of the radial head and along the posterior aspect of the distal humerus. Joint effusion is suspect ed. 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 No fracture or acute finding . Probable joint effusion.
--- NOTE | 2020-01-14 11:10 | RAD REPORT ---
EXAM DESCRIPTION: - CP - 01/14/2020 7:18 am CLINICAL HISTORY: tia COMPARISON: No comparisons TECHNIQUE: Real-time sonographic evaluation of bilateral carotid and vertebral systems was performed . Bahena scale and Doppler interrogation were performed with waveform tracing bilaterally. FINDINGS: Normal high resistance waveforms are noted in both external carotid arteries. The common c arotid arteries and internal carotid arteries show normal low resistance waveforms. Calcified plaquing changes are present in the right carotid bulb without significant luminal narrowin g. Left bulb calcified plaquing changes also present. Again, no significant luminal narrowing. ICA/CC A ratios measure 1.6 on the right and 1.9 on the left. These elevated ratios are not believed to be d ue to significant stenosis. Exam was technically limited. The patient was not able to fully cooperate with the examination. Vertebral arteries were poorly visualized. Velocity values and ratios were recorded and are retained in the patient's imaging records. IMPRESSION: Calcified plaquing changes are present in each carotid bulb. Exam was technically limited. No hemodynamically significant stenosis suspected. No evidence of a hemodynamically significant stenosis.
--- NOTE | 2020-01-14 17:38 | RAD REPORT ---
EXAM DESCRIPTION: CT - Ct Stroke Brain Wo Cont - 01/14/2020 2:53 am CLINICAL HISTORY: CONFUSED COMPARISON: None. TECHNIQUE: CT HEAD WITHOUT IV CONTRAST on 01/14/2020 2:07 AM CDT This exam was performed according to our departmental dose-optimization program, which includes autom ated exposure control, adjustment of the mA and/or kV according to patient size and/or use of iterati ve reconstruction technique. FINDINGS: There is no acute hemorrhage, mass effect or midline shift. Bahena-white differentiation is preserved. There is no hydrocephalus. There is no significant volume loss for age. There are mild pat ariana hypodensities within the periventricular and subcortical white matter, consistent with microangio pathic ischemic changes. The calvarium is intact. Orbits and globes are unremarkable. The paranasal sinuses are clear. Mastoid air cells are clear. IMPRESSION: No acute intracranial findings. Electronically signed by: Aron Rodrigues MD 01/14/2020 2:24 AM CDT Due to temporary technical issues with the PACS/Fluency reporting system, reports are being signed by the in house radiologist without review as a courtesy to ensure prompt reporting. The interpreting r adiologist is fully responsible for the content of the report.
--- NOTE | 2020-01-14 22:27 | CON ---
History Of Present Illness: A 75-year-old gentleman came in for rule out TIA, which he ruled out. H owsamuel, had traumatic catheterization and had some gross hematuria. He was on Xarelto at home. I dockery ve told the nurses to hold the Xarelto and the aspirin while he is here. He is able to pee. Nurse s aid it was red. However, he is stable. I feel like another catheterization may make this possible f alse passage worse. So we will leave him alone, let him urinate, hold the blood thinners, hydrate hi m until the urine clears. Allergies: NO KNOWN DRUG ALLERGIES. Medications: Takes Xarelto at home, aspirin, metformin, amlodipine. Medical History: History of atrial fibrillation, insulin-dependent diabetes mellitus, hypertension, bradycardia. Social History: Denies smoking, tobacco, no drug use. Review of Systems: Otherwise negative. Somewhat confused. Physical Examination: Vital Signs: Temperature 98.3, pulse 60, respirations 16, BP 170/81, 96% sat on room air. HEENT: Atraumatic, normocephalic. Lungs: Clear. Abdomen: Soft, nontender. : Both testicles well descended. Phallus normal. Some dried blood-stained underwear. Extremities: Normal range of motion. Laboratory Review: White count stable. H and H 12 and 36. Coagulation: PT elevated at 18, INR 1.6 , PTT 22. Chemistries: Essentially sodium low at 125, potassium 4.1, chloride 104, carbon dioxide 2 6, BUN 16, creatinine 1.0, GFR 72, glucose 152, calcium 8.5, magnesium 1.5, lipase 93. Urine shows p H 7.0, specific gravity 1.030, 2+ ketones, 3+ blood, nitrite negative, esterase negative. Assessment: Possible traumatic catheterization. Plan: Hold all blood thinners. Hydrate patient. Allow patient to void until clear. If he does not clear at all, he may need a procedure done. However, we will use it as the last resort. DAE/MODL Voice ID: [id number] Report ID: [id number]
[2020-01-15 06:31] LABS: BUN Blood Urea Nitrogen 13 mg/dL (7-18); Bicarbonate 24 mmol/L (21-32); Glucose Level 156 mg/dL (74-106); Magnesium 1.8 mg/dL (1.8-2.4); Potassium 3.7 mmol/L (3.5-5.1); Sodium Level 136 mmol/L (136-145)
[2020-01-15 06:34] LABS: HDL Cholesterol 49 mg/dL (40-60); LDL Cholesterol, Calculated 28 (<130)
[2020-01-15 06:35] LABS: Creatine Phosphokinase 63 U/L (39-308)
[2020-01-15 07:20] LABS: CKMB Creatine Kinase MB 1.2 ng/mL (0.3-3.6); Troponin I < 0.02 ng/mL (0.0-0.045)
[2020-01-15] MEDS: INSULIN -REGULAR HUMAN 50 UNIT/0.5 ML ML SQ SCH ×2 (07:30→12:38)
[2020-01-15 08:38] VITALS: O2SAT 98
[2020-01-15] MEDS ORDERED: AMLODIPINE 10 MG TAB PO SCH (09:00)
[2020-01-15] MEDS ORDERED: ATORVASTATIN 40 MG TAB PO SCH (09:00)
--- NOTE | 2020-01-15 09:08 | RAD REPORT ---
EXAM DESCRIPTION: CT - Head Brain Wo Cont - 01/15/2020 8:51 am CLINICAL HISTORY: tia Headache, drowsiness, CVA symptomology COMPARISON: Ct Stroke Brain Wo Cont dated 01/14/2020 TECHNIQUE: All CT scans are performed using dose optimization technique as appropriate and may inclu de automated exposure control or mA/KV adjustment according to patient size. FINDINGS: No intracranial hemorrhage, hydrocephalus or extra-axial fluid collection. Mild generalize d brain atrophy is present with mild periventricular and deep white matter chronic microvascular isch emic changes. No areas of brain edema or evidence of midline shift. The paranasal sinuses and mastoids are clear. The calvarium is intact. IMPRESSION: No acute intracranial abnormality. No suspicious interval change since comparative stud y.
[2020-01-15 13:29] VITALS: BP 155/75; TEMP 97.9
--- NOTE | 2020-01-15 13:38 | PN ---
The patient is doing better today. Urine is clear now, but still some blood. We will go in the righ t direction. We will continue management, hydration. Hold blood thinners for now. DAE/NOHEMY Voice ID: [id number] Report ID: [id number]
--- NOTE | 2020-01-15 15:52 | CON ---
Reason For Consultation: Consultation called because of possible TIA and confusion. History Of Present Illness: Mr. Tobin is a 75-year-old patient with atrial fibrillation, diabetes m ellitus, and hypertension, who is actually unable to get an MRI because of hardware, but anyway the p atient was determined to have some potential left-sided weakness and more confusion on top of a basel ine cognitive problem. His daughter actually said for perhaps about a year, he has had issues with r ecalling conversations, words, thoughts, locations of items, and directions when traveling and at [place] appeared confused and disoriented. At [facility], his brain CT scan which has been repea petra because he is unable to get the MRI was negative for any acute ischemic or hemorrhagic stroke. T he study identified mild generalized brain atrophy with mild periventricular and deep white matter ch ronic small-vessel ischemic disease. There was no acute ischemic or hemorrhagic change and the 2 CT scans were over 24 hours apart, and again he could not have an MRI because of neck hardware. Past Medical History: As indicated. Allergies: NO KNOWN DRUG ALLERGIES. Social History: The patient drank alcohol in the past. Actually reports there was an injury. He pl ayed football many years ago and injured his left side and has had chronic problems with the left mohsen ulder and his left elbow and actually now has a swollen and painful left elbow, which is being evalua petra further. X-ray did show some degenerative changes in the left elbow. Family History: Noncontributory. Home Medications: Xarelto, Lipitor 40 mg daily, aspirin, and Norvasc. The patient actually did have traumatic urine bleeding and is being followed by Dr. Hong who has held his Xarelto and aspirin. Review of Systems: Not reliable. Patient cannot give a consistent story. Physical Examination: Vital Signs: Blood pressure 155/81, pulse 60, respiratory rate 18, temperature 98.5, oxygen saturati on 98% on room air. General: Mr. Tobin is actually somewhat restless in bed. He actually did sit at the side of the be d and became more settled and followed instructions to do examination. HEENT: He appears normocephalic, atraumatic. Sclerae are anicteric. Oropharynx is moist and pink. Neck: Decreased range of motion in all directions following neck surgery. Neurologic: He does have some pain and then swelling in the left elbow. Has decreased ability to fl ex the forearm due to pain in his left elbow, but his wrist flexion/extension and remedial reading teacher on the left is normal. His motor in the right upper extremity is normal. In the lower extremities, he has full st rength. Sensation is stocking-glove loss to light touch and temperature in the legs and arms. Refle xes are depressed in upper and lower extremities. Coordination is slow but intact in upper and lower extremities. Patient will be ambulated with the physical therapist. Laboratory Studies: White blood cell count 8.2, hemoglobin 12.2, platelets 109. INR 1.55. Chemistr ies show sodium 136, potassium 3.7, chloride 104, carbon dioxide 24, BUN 13, creatinine 0.91, glucose ranged from 150 to 180, calcium 8.4. His TSH is 1.83. LDL cholesterol 28, HDL cholesterol 49, tota l cholesterol 88. Urinalysis showed 2+ ketones, 2+ blood, 3+ protein and his urine toxicology screen was negative. His electrocardiogram showed a demand pacemaker. His mini-mental status examination was actually done at bedside and his score was 14/30. He missed 3 for delayed verbal recall, 5 for orientation between time and place, and 4 being able to write or co py. Assessment: Mr. Tobin is a 75-year-old patient with a possible acute on chronic encephalopathy. He does seem to have a baseline potentially vascular dementia; however, Alzheimer disease is still a po ssibility. There are other considerations as well including vitamin deficiencies and autoimmune dise ases. He appears to have an acute on chronic issue, which may be related to possible infection, whic h has been ruled out for a urinary tract infection or a pneumonia. It is also possible he may have h ad a transient ischemic attack. His CT scan x2 is negative. In any event, the patient does have a b aseline moderate cognitive impairment. Plan: 1.Aspirin may restart once okayed by Dr. Hong in Urology. 2.Continue his Norvasc 10 mg daily. Continue Lipitor 40 mg at night. Continue with management of h is possible diabetes mellitus. Actually, he is on an insulin sliding scale while in the hospital. 3.The patient may be discharged home and outpatient can have an EEG and blood work for dementia labs when he follows up in clinic and may repeat a cognitive assessment, perhaps the [place] Cognitive A ssessment test at that time. We may also consider adding Aricept or Namenda to his regimen depending on how he is doing. DANIEL Voice ID: [id number] Report ID: [id number]
--- NOTE | 2020-01-15 19:35 | PN ---
Date of Progress Note: 01/15/2020 Subjective: Patient is considerably improved today both again mentally and physically. His elbow wa s dramatically improved; however, he still has some lack of extension and slight tenderness. He is d eveloping possibly a mild cellulitis on top of his and this will be referred to orthopedic surgeon once he is stabilized. His family was present for the discussion and he was informed it is not guy for him to be driving at this time, could be re-evaluated in the office in 48 hours, to abhijeet in off the medication of Ambien and Flexeril, to go back on his Xarelto and metformin 1000 mg and con tinued his blood pressure medication. His CT scan showed no change from the original 1 approximately 2 days ago. Blood counts are much better. I think he is stable enough to be discharged diagnosis other than the fact that he has displayed some changes associated with dementia, possible t hat he was a combination of the medication aforementioned dementia. He was discharged in fair condition. Final Diagnoses: Increased altered mental status and insulin-dependent diabetes mellitus, good contr ol; atrial fibrillation, good control; hematuria secondary to traumatic insertion of catheter; tendin itis of elbow. HR/MODL Voice ID: [id number] Report ID: [id number]
--- NOTE | 2020-01-15 19:35 | PN ---
Date of Progress Note: 01/14/2020 Patient actually seems somewhat better both physically and mentally today and according to his daught er, he is much improved from when he first came in mentally. He still shows memory deficit as he joyce l be worthwhile to repeat the CT scan to make sure there was no acute episode on top of the chronic c hanges associated with his memory loss and other features of dementia. He is seen by Neurology. Als o seen by Dr. Hong and felt that the hematuria was secondary to traumatic catheterization. Patient states he has been having some problems with urination for some time now and at 1 occasion had been o n Flomax. If in fact he continues to improve, there is some question as to diagnosis other than the chronic memory and behavior changes possibly associated with early dementia and whether he had an acu te episode he has tonight which made this presentation in the emergency room warranted is difficult t o say. In the meantime, his blood pressure and blood sugars are stable. He has been off his home me dications of Flexeril and Ambien and actually metformin as well. Possibility playing a pa rt in this acute episode is also a significant possibility. HR/MODL Voice ID: [id number] Report ID: [id number]
--- NOTE | 2020-01-20 12:55 | ER ---
Nurse's Notes [facility] Name: Demond Tobin Age: 75 yrs Sex: Male : 1945 Arrival Date: 01/14/2020 Time: 02:02 Bed 3 Private MD: Diagnosis: Transient cerebral ischemic attack, unspecified Presentation: 01/13 02:03 Chief complaint: EMS states: pt called for help because her , the pt, has sg been having visual hallucinations and saying things that do not make any sense to her. the pt is not sure the last time he was behaving in a normal fashion, per EMS. pt daughter on facetime via pt phone, states that the pt has a pacemaker and metal throughout his body, mainly in his neck and arms, she is unsure when the pt was normal as well due to her living out of town. Coronavirus screen: Proceed with normal triage. Ebola Screen: Patient negative for fever greater than or equal to 101.5 degrees Fahrenheit, and additional compatible Ebola Virus Disease symptoms Patient denies exposure to infectious person. Patient denies travel to an Ebola-affected area in the 21 days before illness onset. No symptoms or risks identified at this time. Initial Sepsis Screen: Does the patient meet any 2 criteria? No. Patient's initial sepsis screen is negative. Does the patient have a suspected source of infection? No. Patient's initial sepsis screen is negative. Risk Assessment: Do you want to hurt yourself or someone else? Patient reports no desire to harm self or others. 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 Onset of symptoms was January 14, 2020. Care prior to arrival: Glucose check: 139. Transition of care: patient was not received from another setting of care. 02:03 Method Of Arrival: EMS: [facility] sg 02:03 Acuity: TOMY 2 sg Historical: - Allergies: 02:06 No Known Allergies; sg - PMHx: 02:06 Atrial Fib; BRADYCARDIA; Diabetes - IDDM; Diabetes - NIDDM; Hypertension; sg - Immunization history:: Adult Immunizations up to date. - Social history:: Smoking status: Patient denies any tobacco usage or history of. Patient/guardian denies using alcohol, street drugs, The patient lives with family. - Family history:: not pertinent. Screenin:14 Abuse screen: Denies threats or abuse. Denies injuries from another. Nutritional rv screening: No deficits noted. Tuberculosis screening: No symptoms or risk factors identified. Fall Risk None identified. 02:56 The patient has not been NPO before screening. The patient is alert, able to follow ea commands. The patient does not exhibit slurred or garbled speech The patient is not exhibiting difficulty speaking. The patient does not exhibit difficulty understanding words. The patient is able to swallow own secretions with no drooling or need for suction. Patient tolerated one teaspoon of water. No drooling, immediate coughing, gurgling, or clearing of the throat was noted. The patient tolerated 90mL of water. No drooling, immediate coughing, gurgling, or clearing of the throat was noted. The patient passed the bedside swallow screening. Oral medications may be given as ordered. Contact Physician for further diet orders. Assessment: 02:13 General: Appears comfortable, Behavior is calm, cooperative. Pain: Complains of pain in rv left arm. Neuro: Level of Consciousness is awake, alert, obeys commands, Oriented to person, place, time, situation. Cardiovascular: Patient's skin is warm and dry. Rhythm is ventricular pacer. Respiratory: Airway is patent Breath sounds are clear bilaterally. Derm: Skin is intact. 03:05 Reassessment: Patient and/or family updated on plan of care and expected duration. Pain ea level reassessed. Patient is alert, oriented x 3, equal unlabored respirations, skin warm/dry/pink. 04:00 Reassessment: Patient and/or family updated on plan of care and expected duration. Pain ea level reassessed. Patient is alert, oriented x 3, equal unlabored respirations, skin warm/dry/pink. 05:55 Reassessment: Patient and/or family updated on plan of care and expected duration. Pain ea level reassessed. Patient is alert, oriented x 3, equal unlabored respirations, skin warm/dry/pink. Awaiting on room assignment. 06:49 Reassessment: Patient and/or family updated on plan of care and expected duration. Pain ea level reassessed. Pt resting with eyes closed respirations even and unlabored. Pt oriented x 2, has bouts of confusion. reports he had two urinary incontinent episode at home, pt reports having a hard time starting a stream of urine. 07:25 Reassessment: Pt A\T\Ox1, to self. Pt c/o left elbow pain, left elbow appears swollen, jl7 mild redness and warmth noted. ERD notified, x-ray ordered. 08:15 Reassessment: Pt's unable to drive, doesn't have friends or family in the area to jl7 call to come get her. Spoke to Amirah, pt's daughter, who reports he has been neurologically declining since around October 2019 but it hasn't been this bad. His mother and father had dementia, unsure if they had Alzheimer's. Daughter on her way from [place], [place] and will be here in about 5 hours. Charge Nurse Luz Marina notified, given daughter's information and request for neurologist to call daughter with update if he comes to see pt prior to daughter's arrival. Vital Signs: 02:02 BP 153 / 82; Pulse 87; Resp 18; Temp 97.7; Pulse Ox 98% on R/A; Weight 95.25 kg; Height sg 6 ft. 0 in. (182.88 cm); Pain 0/10; 02:58 BP 152 / 80; Pulse 61; Resp 18; Pulse Ox 98% on R/A; ea 03:26 BP 151 / 73; Pulse 62; Resp 18; Pulse Ox 98% on R/A; ea 04:03 BP 139 / 74; Pulse 61; Resp 16; Pulse Ox 95% ; ea 04:49 BP 155 / 86; Pulse 60; Resp 18; Pulse Ox 97% on R/A; ea 06:05 BP 151 / 81; Pulse 61; Resp 18; Pulse Ox 97% on R/A; ea 02:02 Body Mass Index 28.48 (95.25 kg, 182.88 cm) sg ED Course: 02:00 Arm band placed on. sg 02:02 Patient arrived in ED. sg 02:05 Madalyn Sy MD is Attending Physician. ma2 02:06 Triage completed. sg 02:13 Gerson Sue RN is Primary Nurse. rv 02:14 Patient has correct armband on for positive identification. minesweeping officer on. Pulse rv ox on. NIBP on. 02:18 CT Stroke Brain w/o Contrast In Process Unspecified. EDMS 02:38 Inserted saline lock: 20 gauge in left antecubital area, using aseptic technique. ea 02:43 Initial lab(s) drawn, by me, sent to lab. sg 02:45 Straight cath inserted, using sterile technique, 16 Fr. no urine output at this time, ea bladder scan showed less than 50 mls in bladder. 02:48 Stroke CXR 1 View In Process Unspecified. EDMS 04:00 Giuliano Zayas MD is Hospitalizing Provider. ma2 06:05 No provider procedures requiring assistance completed. Patient admitted, IV remains in ea place. Administered Medications: 02:56 Drug: Aspirin Chewable Tablet 324 mg Route: PO; ea 05:20 Follow up: Response: No adverse reaction ea 03:43 Drug: NS 0.9% 500 ml Route: IV; Rate: bolus; Site: left forearm; ea 06:06 Follow up: Response: No adverse reaction; IV Status: Completed infusion; IV Intake: ea 500ml 03:43 Drug: Magnesium Sulfate 1 grams Route: IVPB; Infused Over: 1 hrs; Site: left forearm; ea 06:06 Follow up: Response: No adverse reaction; IV Status: Completed infusion ea Intake: 06:06 IV: 500ml; Total: 500ml. ea Outcome: 04:00 Decision to Hospitalize by Provider. ma2 06:05 Instructed on the need for admit, Demonstrated understanding of instructions. ea 08:15 Admitted to Tele accompanied by tech, family with patient, via stretcher, room 431, jl7 with chart, Report called to JENISE Ralph 08:15 Condition: stable 08:15 Discharge instructions given to patient, family, Instructed on the need for admit, Demonstrated understanding of instructions. 08:22 Patient left the ED. jl7 Signatures: Dispatcher [employer] EDMS Eduar Armstrong RN Dolly Adkins RN RN jl7 Xochitl Rodriguez RN RN ea Alzahri, Mohammad, MD MD ma2 Gerson Sue RN RN rv Corrections: (The following items were deleted from the chart) 06:51 06:49 Reassessment: Patient and/or family updated on plan of care and expected ea duration. Pain level reassessed. Patient is alert, oriented x 3, equal unlabored respirations, skin warm/dry/pink. ea
--- NOTE | 2020-01-20 12:56 | EDPHYS ---
Physician Documentation [facility] Name: Demond Tobin Age: 75 yrs Sex: Male : 1945 Arrival Date: 01/14/2020 Time: 02:02 Bed 3 Private MD: ED Physician Madalyn Sy HPI: 01/13 02:40 This 75 yrs old Male presents to ER via EMS with complaints of Altered Mental ma2 Status. 02:40 The patient presents with confusion. Onset: The symptoms/episode began/occurred ma2 gradually, 1 day(s) ago. Associated signs and symptoms: Pertinent negatives: ataxia, chest pain, diaphoresis, diarrhea. Current symptoms: In the emergency department the patient's symptoms have resolved. The patient has not experienced similar symptoms in the past, The patient has experienced similar episodes in the past. Historical: - Allergies: 02:06 No Known Allergies; sg - PMHx: 02:06 Atrial Fib; BRADYCARDIA; Diabetes - IDDM; Diabetes - NIDDM; Hypertension; sg - Immunization history:: Adult Immunizations up to date. - Social history:: Smoking status: Patient denies any tobacco usage or history of. Patient/guardian denies using alcohol, street drugs, The patient lives with family. - Family history:: not pertinent. ROS: 02:40 Constitutional: Negative for fever, chills, and weight loss. ma2 02:40 All other systems are negative. Exam: 02:40 Constitutional: This is a well developed, well nourished patient who is awake, alert, ma2 and in no acute distress. Head/Face: Normocephalic, atraumatic. Eyes: Pupils equal round and reactive to light, extra-ocular motions intact. Lids and lashes normal. Conjunctiva and sclera are non-icteric and not injected. Cornea within normal limits. Periorbital areas with no swelling, redness, or edema. ENT: Nares patent. No nasal discharge, no septal abnormalities noted. Tympanic membranes are normal and external auditory canals are clear. Oropharynx with no redness, swelling, or masses, exudates, or evidence of obstruction, uvula midline. Mucous membranes moist. Neck: Trachea midline, no thyromegaly or masses palpated, and no cervical lymphadenopathy. Supple, full range of motion without nuchal rigidity, or vertebral point tenderness. No Meningismus. Chest/axilla: Normal chest wall appearance and motion. Nontender with no deformity. No lesions are appreciated. Cardiovascular: Regular rate and rhythm with a normal S1 and S2. No gallops, murmurs, or rubs. Normal PMI, no JVD. No pulse deficits. Respiratory: Lungs have equal breath sounds bilaterally, clear to auscultation and percussion. No rales, rhonchi or wheezes noted. No increased work of breathing, no retractions or nasal flaring. Abdomen/GI: Soft, non-tender, with normal bowel sounds. No distension or tympany. No guarding or rebound. No evidence of tenderness throughout. Back: No spinal tenderness. No costovertebral tenderness. Full range of motion. Skin: Warm, dry with normal turgor. Normal color with no rashes, no lesions, and no evidence of cellulitis. MS/ Extremity: Pulses equal, no cyanosis. Neurovascular intact. Full, normal range of motion. Neuro: Awake and alert, GCS 15, oriented to person, place, time, and situation. Cranial nerves II-XII grossly intact. Motor strength 5/5 in all extremities. Sensory grossly intact. Cerebellar exam normal. Normal gait. 02:40 Psych: Awake, alert, with orientation to person, place and time. Behavior, mood, and ma2 affect are within normal limits. Vital Signs: 02:02 BP 153 / 82; Pulse 87; Resp 18; Temp 97.7; Pulse Ox 98% on R/A; Weight 95.25 kg; Height sg 6 ft. 0 in. (182.88 cm); Pain 0/10; 02:58 BP 152 / 80; Pulse 61; Resp 18; Pulse Ox 98% on R/A; ea 03:26 BP 151 / 73; Pulse 62; Resp 18; Pulse Ox 98% on R/A; ea 04:03 BP 139 / 74; Pulse 61; Resp 16; Pulse Ox 95% ; ea 04:49 BP 155 / 86; Pulse 60; Resp 18; Pulse Ox 97% on R/A; ea 06:05 BP 151 / 81; Pulse 61; Resp 18; Pulse Ox 97% on R/A; ea 02:02 Body Mass Index 28.48 (95.25 kg, 182.88 cm) MDM: 02:05 Patient medically screened. ma2 02:40 Differential Diagnosis: electrolyte abnormality, alcohol intoxication, hypoglycemia, ma2 meningitis, overdose, volume depletion. Data reviewed: vital signs, nurses notes. Counseling: I had a detailed discussion with the patient and/or guardian regarding: the historical points, exam findings, and any diagnostic results supporting the discharge/admit diagnosis, the presence of at least one elevated blood pressure reading (>120/80) during this emergency department visit, the need for further work-up and treatment in the hospital. Response to treatment: the patient's symptoms have resolved after treatment. ED course: had slurred speech and left sided arm weakness that resolved he is back to normal now.. 01/13 02:07 Order name: Lipase; Complete Time: 03:43 [facility] 01/13 02:07 Order name: Magnesium; Complete Time: 03:43 [facility] 01/13 02:07 Order name: UDS; Complete Time: 06:38 [facility] 01/13 02:07 Order name: Troponin (emerg Dept Use Only); Complete Time: 03:43 [facility] 01/13 02:07 Order name: Basic Metabolic Panel; Complete Time: 03:43 [facility] 01/13 02:07 Order name: CBC with Diff; Complete Time: 03:43 [facility] 01/13 02:07 Order name: Protime (+inr); Complete Time: 03:43 [facility] 01/13 02:07 Order name: Ptt, Activated; Complete Time: 03:43 [facility] 01/13 02:07 Order name: CT Stroke Brain w/o Contrast [facility] 01/13 02:07 Order name: Stroke CXR [address] [facility] 01/13 04:16 Order name: CKMB Creatine Kinase MB [facility] 01/13 04:16 Order name: CKMB Creatine Kinase MB [facility] 01/13 05:25 Order name: Urine Dipstick--Ancillary (enter results) 01/13 06:02 Order name: Urine Dipstick-Ancillary; Complete Time: 06:38 [facility] 01/13 02:07 Order name: EKG; Complete Time: 02:08 [facility] 01/13 02:07 Order name: Accucheck; Complete Time: 03:05 [facility] 01/13 02:07 Order name: Cardiac monitoring; Complete Time: 02:44 [facility] 01/13 02:07 Order name: EKG - Nurse/Tech; Complete Time: 02:44 ma2 01/13 02:07 Order name: IV Saline Lock; Complete Time: 02:44 ma2 01/13 02:07 Order name: Labs collected and sent; Complete Time: 02:44 ma2 01/13 02:07 Order name: NPO; Complete Time: 02:44 ma2 01/13 02:07 Order name: O2 Per Protocol; Complete Time: 02:53 ma2 01/13 02:07 Order name: O2 Sat Monitoring; Complete Time: 02:53 ma2 01/13 02:07 Order name: Stroke Swallow Screen; Complete Time: 02:53 ma2 01/13 04:19 Order name: Echo with Doppler EDMS 01/13 04:20 Order name: Carotid Artery Bilateral EDMS 01/13 07:25 Order name: XRAY Elbow LEFT 3 view jr8 01/13 02:07 Order name: Urine Dipstick-Ancillary (obtain specimen); Complete Time: 05:20 ma2 Administered Medications: 02:56 Drug: Aspirin Chewable Tablet 324 mg Route: PO; ea 05:20 Follow up: Response: No adverse reaction ea 03:43 Drug: NS 0.9% 500 ml Route: IV; Rate: bolus; Site: left forearm; ea 06:06 Follow up: Response: No adverse reaction; IV Status: Completed infusion; IV Intake: ea 500ml 03:43 Drug: Magnesium Sulfate 1 grams Route: IVPB; Infused Over: 1 hrs; Site: left forearm; ea 06:06 Follow up: Response: No adverse reaction; IV Status: Completed infusion ea Disposition: 01/14/20 04:00 Hospitalization ordered by Giuliano Zayas for Observation. Preliminary diagnosis is Transient cerebral ischemic attack, unspecified. - Bed requested for Telemetry/MedSurg (observation). - Status is Observation. jl7 - Condition is Stable. - Problem is new. - Symptoms are unchanged. Signatures: Dispatcher [employer] EDMN Jeri Laureano RN Eduar Mercer RN RN sg Leal, Jahala, RN RN jl7 Xochitl Rodriguez RN RN ea Alzahri, Mohammad, MD MD wv2 Corrections: (The following items were deleted from the chart) 06:08 04:00 Hospitalization Ordered by Giuliano Zayas MD for Observation. Preliminary diagnosis is Transient cerebral ischemic attack, unspecified. Bed requested for Telemetry/MedSurg (observation). Status is Observation. Condition is Stable. Problem is new. Symptoms are unchanged. ma2 08:22 06:08 01/14/2020 04:00 Hospitalization Ordered by Giuliano Zayas MD for Observation. jl7 Preliminary diagnosis is Transient cerebral ischemic attack, unspecified. Bed requested for Telemetry/MedSurg (observation). Status is Observation. Condition is Stable. Problem is new. Symptoms are unchanged. mw
--- NOTE | 2020-02-23 23:58 | HP ---
Date of Admission: 01/14/2020 Chief Complaint: Altered mental status. History Of Present Illness: The patient was brought to the emergency room by the family, states he i s having some mild visual hallucinations and changes in his orientation. Further questioning of the family, although they say that he has had some memory deficits and possible changes over the past few months, this is an acute episode. The patient does take numerous medications and Flexeril was added to his regimen couple days prior to this for muscle spasms. Past History: The patient has a history of NIDDM, good control; hypertension, good control; atrial f ibrillation with pacemaker on Xarelto; neck injury necessitating surgery a number of years ago. Social History: Currently, patient is nonsmoker, nondrinker. Family History: Noncontributory. Physical Examination: General: Patient is a slightly disoriented, confused elderly male with stable vital signs. Head and Neck: Normocephalic. Pupils are equal and reactive to light and accommodation. Fundi nega tive. Trachea midline. Thyroid not palpable. ENT: Negative. Chest: Clear to P and A. Cardiovascular: PMI midclavicular line. Heart: Heart sounds normal. Peripheral pulses are present and equal bilaterally. Abdomen: No organomegaly. Bowel sounds present. Extremities: Upper extremities are normal except for the left elbow, which showed some edema in the joint with decreased motion in all directions. Rectal: Deferred. Pelvic: Deferred. Impression: 1.Altered mental status, possibly secondary to transient ischemic attack and/or drug reaction. 2.Atrial fibrillation, controlled. 3.Lvq-xevquxp-xhjhvybzo diabetes mellitus, good control. 4.Hypertension, good control. 5.Tendonitis of the elbow. 6.Hematuria secondary to catheter insertion. Plan: Patient will be admitted, monitored, was seen by Neurology. He had some difficulty voiding, a catheter was inserted. Shortly thereafter, he had some hematuria. Therefore, Urology will also be consulted. HR/MODL Voice ID: [id number]
--- NOTE | 2020-02-24 00:52 | DS ---
Date of Discharge: 01/15/2020 History: The patient was admitted to the hospital on 01/13, after presenting to the emergency room w ith altered mental status. A CT scan did not show any abnormalities suggesting CVA. The MRI was pre cluded because he had some neck surgery with hardware inserted a number of years ago, however during his hospital stay after seen by Neurology, was repeated and it showed no change for an acute episode, some chronic change compatible with his age. During his hospital stay, his mental acuity, orientati on, improved considerably. Blood pressure and diabetes were stable. He was seen by Urology, who fel t that it was safe to resume his anticoagulant, felt it was secondary probably to the catheterization . Once the catheter was removed, he had no further gross hematuria and was continued on his Norvasc, Lipitor, and aspirin during his hospital stay. The Xarelto was held during this time. By 01/14, he was doing considerably better, was not quite at baseline according to his family. However, he was o rientated and now felt he could be safely discharged. Continue on medications, getting off Flexeril and adding the Xarelto in 24 hours. He was also referred to an orthopedic surgeon for the tendinitis of his elbow. Follow up with me for neurological system with Dr. Lugo, the neurologi . Discharged in good condition. Final Diagnoses: Acute multiple sclerosis, possibly secondary to transient ischemic attack and/or dr wojciech reaction, atrial fibrillation, [id number]-dbikqsorx diabetes mellitus, hypertension, all controll ed; tendonitis of the left elbow, hematuria secondary to catheter insertion. HR/MODL Voice ID: [id number] Report ID: [id number]
== END 2020-01-15 16:30 | disposition home health service (06) ==
LOC: ER 02:01 → ERHOLD 04:25 → 4TH 07:47
PROVIDERS: ADMIT Family Medicine; ATTEND Family Medicine
DX: R41.82 Altered mental status, unspecified (principal); T83.83XA Hemorrhage due to genitourinary prosthetic devices, implants and grafts, initial encounter; R31.9 Hematuria, unspecified; M77.9 Enthesopathy, unspecified; E11.9 Type 2 diabetes mellitus without complications; I10 Essential (primary) hypertension; I48.91 Unspecified atrial fibrillation; Z95.0 Presence of cardiac pacemaker
CPT/HCPCS: 96365; 93005; 85025; 80048 ×2; 36415 ×2; 83735 ×2; 82550; 85610; 80061; 82947 ×6; 80307 ×8; 85730; 84443; 81003; 84484 ×2; 82553; 83690; 70450 ×2; 71045; 73080; 93880; 94760 ×3; 51702; 99285; 96366; J3475; J7040; G0378 ×3

== ENCOUNTER 2020-10-11 21:14 | Emergency (ER) | payer OTHER ==
--- OUTSIDE RECORDS SUMMARY | 2020-10-11 21:17 | XMS REPORT | Continuity of Care Document ---
:1945 Author Organization [facility] t Address [address] [place] [address] Care Team Providers Name Role Phone Asked, Pcp Primary Care Physician Unavailable Problems Condition Condition Condition Status Onset Resolution Last Treating Co mments Source Name Details Category Date Date Treatment Clinician Date Bradycardi Bradycardi Disease [place] a 04-10 Methodi 00:00: st 00 Chronic Chronic Disease Active [place] atrial atrial 04-10 Methodi fibrillati fibrillati 00:00: st on Bradyarrhy Bradyarrhy Disease [place] thmia thmia 04-10 Methodi 00:00: st 00 Primary Primary Problem Active [facility] osteoarthr osteoarthr Ny kes - itis of itis [facility] left elbow [facility] elbow l [facility] Lower Lower Diagnosis Active [facility] urinary urinary [facility] - tract tract [facility] symptoms symptoms l (LUTS) [facility]) [facility] Elevated Elevated Diagnosis Active [facility] PSA PSA [facility] Hematuria Hematuria Diagnosis Active [facility] Allergies, Adverse Reactions, Alerts This patient has no known allergies or adverse reactions. Social History Social Habit Start Date Stop Date Quantity Comments Source Sex Assigned At Renata Montes De Oca Medications Ordered Filled Start Stop Current Ordering Indication Dosage Frequency Signature Comments Components Source Medication Medication Date Date Medication? Clinician (SIG) Name Name amLODIPine Yes 5mg QD Take 5 mg [place] (NORVASC) 5 04-12 by mouth Meth [place] mg tablet 11:53: daily. st 08 metFORMIN Yes Q.5D Take by [place] (GLUCOPHAGE 04-12 mouth 2 Metho di ) 1,000 mg 11:53: (two) st tablet 08 times a day with meals. 1,000 mg in the morning1,5 00 mg in the evening zolpidem 2018- Yes 10mg QD Take 10 mg Renata ston (AMBIEN) 10 04-12 by mouth Meth [place] mg tablet 11:53: nightly. st 08 atorvastati Yes 40mg QD Take 40 mg Navarro n (LIPITOR) 04-12 by mouth Meth [place] 40 MG 11:53: daily. st tablet 08 rivaroxaban Yes 20mg QD Take 20 mg Navarro (XARELTO) 04-12 by mouth Method i 20 mg 11:53: daily. st tablet 08 Donepezil Donepezil Yes Shandra [address] [facility] HCl HCl Live at bedtime [facility] Xarelto Xarelto Yes Shandra [address] [facility] [place] with food [facility] Metformin Metformin Yes Shandra [address] [facility] HCl HCl [place] with meals [facility] AZO Bladder AZO Bladder Yes Shandra As [facility] Control Control Live Directed [facility] Amlodipine Amlodipine Yes Shandra [address] [facility] Besylate Besylate Live Seema es - [facility] Multivitami Multivitami Yes Shandra not [facility] n n Live defined [facility] Xarelto Xarelto Yes Shandra not [facility] Live defined [facility] Metformin Metformin Yes Shandra not [facility] HCl HCl [place] defined [facility] Atorvastati Atorvastati Yes Shandra [address] [facility] n Calcium n Calcium Live [facility] Procedures This patient has no known procedures. Plan of Care Planned Activity Planned Date Details Comments Source Future Scheduled 2020-03-21 INFLUENZA VACCINE [facility] 00:00:00 [code = INFLUENZA VACCINE] Future Scheduled 2008-01-07 65+ PNEUMOCOCCAL [facility] Test 00:00:00 VACCINE (1 of 1 - PPSV23) [code = 65+ PNEUMOCOCCAL VACCINE (1 of 1 - PPSV23)] Future Scheduled 1993 SHINGLES VACCINES (#1) [facility] [place] [facility] Test 00:00:00 [code = SHINGLES VACCINES (#1)] Future Scheduled 1961 Hepatitis C screening Ho [facility] Test 00:00:00 (procedure) [code = 295320059] Future Scheduled 1959 COVID-19 VACCINE (1 of [place] [facility] 00:00:00 2) [code = COVID-19 VACCINE (1 of 2)] Encounters Start End Encounter Admission Attending Care Care Encounter Source Date/Time Date/Time Type Type Clinicians Facility Department ID 2020-03-26 2020-03-26 Outpatient Radha Garciat [id number] [facility] [address] 13:15:00 13:15:00 t Specialty/U Ny kes - Specialty rology [facility] 2020-02-06 2020-02-06 Outpatient [place] [id number] [facility] 13:00:00 13:00:00 t Bone [facility] Results This patient has no known results.
--- OUTSIDE RECORDS SUMMARY | 2020-10-11 21:17 | XMS REPORT | Clinical Summary ---
:1945 Author Organization [facility] Address [address] [place] [address] Care Team Providers Name Role Phone Asked, Pcp Primary Care Provider Unavailable Allergies No Known Active Allergies Medications Medication Sig Dispensed Refills Start [...] 04/10/2018 Chronic atrial fibrillation 04/10/2018 Bradyarrhythmia 04/10/2018 Surgical History Surgery Date Site/Laterality Comments CARDIAC ELECTROPHYSIOLOGY 04/11/2018 N/A Proced ure: Pacemaker PROCEDURE insertion new or replacement; Guaman rgeon: Hilaria Hall Jr., MD; Location: [facility] Lab Invasive Locatio n; Service: Cardiol ogy; Laterality: N/A; Medical devices from this surgery are in t he Implants section . Social History Tobacco Use Types Packs/Day Years Used Date Never Assessed Sex Assigned at Date Recorded Not on file Last Filed Vital Signs Not on file Plan of Treatment Health Maintenance Due Date Last Done Comments COVID-19 VACCINE (1 of 2) 1959 HEPATITIS C SCREENING 1961 SHINGLES VACCINES (#1) 1993 65+ PNEUMOCOCCAL VACCINE (1 of 1 - PPSV23) 01/07/2008 INFLUENZA VACCINE 03/21/2020 Implants Implanted Type Area Moth Proofer Device Shelf Model / Identifier Expiration Serial / Date Lot Ingevity Mri Pacing Lead Is-1 Bipolar 59cm - [id number] Cardiac Pacing N/A: [employer]ON 07/10/2019 [id number] / Implanted: 04/11/2018 at [facility] (Quantity not on file) Heydi ds or N/A SCIENTIFIC- CRM [id number] / Electrodes or [id number] Accessories Envelope Pcemkr Antbactl Fully Resorb Aigisrxr - [id number] Cardiovascular N/A: [employer] [id number] / Implanted: 04/11/2018 at [facility] (Quantity not on file) Implants N/A / Generator, Accolade Mri Sr - [id number] PACEMAKERS N/A: BOSTO N 11/24/2018 [id number] / Implanted: 04/11/2018 at [facility] (Quantity not on file) N/A SCIENTIFIC- CRM [id number] / [id number] Results Not on fileafter 10/11/2019 Insurance Payer Benefit Plan / Subscriber ID Effective Phone Address T ype Group Dates MEDICARE MEDICARE PART A [id number] 2007-[place], [place] Medicare AND B ent COMMERCIAL MISC MISC COMMERCIAL [id number] 2016-[facility] Commercial ent Advance Directives For more information, please contact: [phone] Type Date Recorded Patient Crisis Nurse Explanati on Advance Directives, Living Will and Medical Power of Structures Assembler Code Status Date Activated Date Inactivated Comments Full Code 04/10/2018 2:33 PM 04/12/2018 3:53 PM Code Status decision reached by: Patient
--- NOTE | 2020-10-11 22:01 | ER ---
Nurse's Notes [facility] Name: Demond Tobin Age: 75 yrs Sex: Male : 1945 Arrival Date: 10/11/2020 Time: 21:21 Bed 4 Private MD: Diagnosis: Nausea with vomiting, unspecified Presentation: 10/11 21:21 Chief complaint: EMS states: N/V that began 1 hour ago. Pt reports he has vomited 3 ss times so far. Denies pain. Coronavirus screen: Client denies travel out of the [place] in the last 14 days. Ebola Screen: Patient denies exposure to infectious person. Patient denies travel to an Ebola-affected area in the 21 days before illness onset. Initial Sepsis Screen: Does the patient meet any 2 criteria? No. Patient's initial sepsis screen is negative. Does the patient have a suspected source of infection? No. Patient's initial sepsis screen is negative. Risk Assessment: Do you want to hurt yourself or someone else? Patient reports no desire to harm self or others. Onset of symptoms was October 11, 2020. 21:21 Method Of Arrival: EMS: [facility] 21:21 Acuity: TOMY 3 ss 21:25 Care prior to arrival: Medication(s) given: zofran 4 mg, IV initiated. 18 GA, in the ss right antecubital area, Glucose check: 221. Historical: - PMHx: 21:25 Atrial Fib; BRADYCARDIA; Diabetes - IDDM; Hypertension; ss - PSHx: 21:25 Pacemaker; ss - Immunization history:: Adult Immunizations up to date. - Social history:: Smoking status: Patient denies any tobacco usage or history of. Screenin:37 Abuse screen: Denies threats or abuse. Denies injuries from another. Nutritional rv screening: No deficits noted. Tuberculosis screening: No symptoms or risk factors identified. Fall Risk None identified. Assessment: 21:36 General: Appears comfortable, Behavior is calm, cooperative. Pain: Denies pain. Neuro: rv Level of Consciousness is awake, alert, obeys commands, Oriented to person, place, time, situation. Cardiovascular: Patient's skin is warm and dry. Respiratory: Airway is patent Respiratory effort is even, unlabored, Breath sounds are clear bilaterally. GI: Abdomen is round non-distended. Derm: Skin is intact. 22:00 Reassessment: PATIENT REFUSED TO BE TREATED AFTER TALKING TO DR HOFFMAN. DISCHARGED rv AFTER SIGNING AMA FORM. Vital Signs: 21:21 BP 161 / 83; Pulse 61; Resp 16; Pulse Ox 98% on R/A; Weight 92.99 kg; Height 6 ft. 11 ss in. (210.82 cm); Pain 0/10; 21:59 BP 161 / 76; Pulse 61; Resp 16; Pulse Ox 98% on R/A; rv 21:21 Body Mass Index 20.92 (92.99 kg, 210.82 cm) ED Course: 21:21 Patient arrived in ED. 21:22 Haseeb Hoffman MD is Attending Physician. [facility] 21:24 Triage completed. ss 21:25 Arm band placed on right wrist. 21:36 Gerson Sue, RN is Primary Nurse. rv 21:37 Patient has correct armband on for positive identification. alarm security or surveillance monitor on. Pulse rv ox on. NIBP on. 21:37 No provider procedures requiring assistance completed. Maintain EMS IV. Dressing rv intact. Good blood return noted. Site clean \T\ dry. Gauge \T\ site: g18 RAC. 22:00 IV discontinued, intact, bleeding controlled, No redness/swelling at site. Pressure rv dressing applied. Administered Medications: No medications were administered Outcome: 22:00 AMA AMA form signed rv 22:00 Condition: good 22:01 Patient left the ED. rv Signatures: Ira Whitfield RN RN Gerson Sue, JENISE RN rv Haseeb Hoffman MD MD 7
--- NOTE | 2020-10-11 22:01 | EDPHYS ---
Physician Documentation [facility] Name: Demond Tobin Age: 75 yrs Sex: Male : 1945 Arrival Date: 10/11/2020 Time: 21: Bed 4 Private MD: ED Physician Haseeb Hoffman HPI: 10/11 21:54 This 75 yrs old Male presents to ER via EMS with complaints of mh7 Nausea/Vomiting. 21:54 The patient presents to the emergency department with nausea, that is mild, vomiting, mh7 that is intermittent, 3 times since the onset of symptoms. Onset: The symptoms/episode began/occurred today, at 18:00. Possible causes: bad food exposure, possibly bad home food, Beef Stew. The symptoms are aggravated by nothing. The symptoms are alleviated by nothing. Associated signs and symptoms: Pertinent negatives: abdominal pain, anorexia, belching, constipation, diarrhea, dysuria, fever, flatulence, GI bleeding, hematuria. Severity of symptoms: At their worst the symptoms were moderate today, in the emergency department the symptoms have resolved and did so just prior to arrival. Historical: - PMHx: 21:25 Atrial Fib; BRADYCARDIA; Diabetes - IDDM; Hypertension; ss - PSHx: 21:25 Pacemaker; ss - Immunization history:: Adult Immunizations up to date. - Social history:: Smoking status: Patient denies any tobacco usage or history of. ROS: 21:54 Constitutional: Negative for fever, chills, and weight loss, Eyes: Negative for injury, mh7 pain, redness, and discharge, ENT: Negative for injury, pain, and discharge, Neck: Negative for injury, pain, and swelling, Cardiovascular: Negative for chest pain, palpitations, and edema, Respiratory: Negative for shortness of breath, cough, wheezing, and pleuritic chest pain, Back: Negative for injury and pain, : Negative for injury, bleeding, discharge, and swelling, MS/Extremity: Negative for injury and deformity, Skin: Negative for injury, rash, and discoloration, Neuro: Negative for headache, weakness, numbness, tingling, and seizure, Psych: Negative for depression, anxiety, suicide ideation, homicidal ideation, and hallucinations, Allergy/Immunology: Negative for hives, rash, and allergies, Endocrine: Negative for neck swelling, polydipsia, polyuria, polyphagia, and marked weight changes, Hematologic/Lymphatic: Negative for swollen nodes, abnormal bleeding, and unusual bruising. Exam: 21:54 Constitutional: This is a well developed, well nourished patient who is awake, alert, mh7 and in no acute distress. Head/Face: Normocephalic, atraumatic. Eyes: Pupils equal round and reactive to light, extra-ocular motions intact. Lids and lashes normal. Conjunctiva and sclera are non-icteric and not injected. Cornea within normal limits. Periorbital areas with no swelling, redness, or edema. Neck: Trachea midline, no thyromegaly or masses palpated, and no cervical lymphadenopathy. Supple, full range of motion without nuchal rigidity, or vertebral point tenderness. No Meningismus. Chest/axilla: Normal chest wall appearance and motion. Nontender with no deformity. No lesions are appreciated. Cardiovascular: Regular rate and rhythm with a normal S1 and S2. No gallops, murmurs, or rubs. Normal PMI, no JVD. No pulse deficits. Respiratory: Lungs have equal breath sounds bilaterally, clear to auscultation and percussion. No rales, rhonchi or wheezes noted. No increased work of breathing, no retractions or nasal flaring. 21:54 Back: No spinal tenderness. No costovertebral tenderness. Full range of motion. Skin: Warm, dry with normal turgor. Normal color with no rashes, no lesions, and no evidence of cellulitis. MS/ Extremity: Pulses equal, no cyanosis. Neurovascular intact. Full, normal range of motion. Neuro: Awake and alert, GCS 15, oriented to person, place, time, and situation. Cranial nerves II-XII grossly intact. Motor strength 5/5 in all extremities. Sensory grossly intact. Cerebellar exam normal. Normal gait. Psych: Awake, alert, with orientation to person, place and time. Behavior, mood, and affect are within normal limits. 21:54 Abdomen/GI: Inspection: obese Bowel sounds: normal, in all quadrants, Palpation: abdomen is soft and non-tender, in all quadrants, Rectal exam: the exam is deferred, because of patient request, Indicators: McBurney's point is not tender, Garcia's sign is negative, Rovsing's sign is negative, Obturator sign is negative, Psoas sign is negative, Liver: no appreciated palpable abnormalities, Hernia: noted in the paraumbilical area, incarceration, is not appreciated, tenderness, is not appreciated, bowel sounds are appreciated on auscultation. Vital Signs: 21:21 BP 161 / 83; Pulse 61; Resp 16; Pulse Ox 98% on R/A; Weight 92.99 kg; Height 6 ft. 11 ss in. (210.82 cm); Pain 0/10; 21:59 BP 161 / 76; Pulse 61; Resp 16; Pulse Ox 98% on R/A; rv 21:21 Body Mass Index 20.92 (92.99 kg, 210.82 cm) ss MDM: 21:54 Differential diagnosis: gastritis, pancreatitis, Bowel obstruction, Vomiting. Data [facility] reviewed: vital signs, nurses notes, EMS record. Data interpreted: Pulse oximetry: on room air is 98 %. Interpretation: normal. Response to treatment: the patient's symptoms have resolved after treatment, the patient's blood pressure is in an acceptable range, mental status has returned to baseline, the patient no longer shows bradycardia, the patient is not short of breath, the patient is not tachycardic, the patient's pain is gone, the patient's temperature has normalized, the patient is now symptom free. Refusal of service: The patient/guardian displays adequate decision making capability and despite a detailed discussion of alternatives, benefits, risks, and consequences refuses: CT Scan, all lab tests, Medications. 22:00 Patient medically screened. [facility] Administered Medications: No medications were administered Disposition: 10/11/20 22:00 Patient has left against medical advice. Impression: Nausea with vomiting, unspecified. - Patients states they are going to Home. - Condition is Stable. - Discharge Instructions: Nausea and Vomiting, Adult. Follow up: Private Physician; When: 1 - 2 days; Reason: Worsening of condition, Recheck today's complaints, Continuance of care, Re-evaluation by your physician. - Problem is new. - Symptoms are resolved. Signatures: Ira Whitfeild, RN RN ss Gerson Sue RN RN rv Haseeb Hoffman MD MD 7 Corrections: (The following items were deleted from the chart) 22:01 22:00 10/11/2020 22:00 Patients has left against medical advice. Impression: Nausea rv with vomiting, unspecified. Patient states they are going to Home. Condition is Stable. Follow up: Private Physician; When: 1 - 2 days; Reason: Worsening of condition, Recheck today's complaints, Continuance of care, Re-evaluation by your physician. Problem is new. Symptoms are resolved. mh7
[2020-10-11 22:15] VITALS: BP 161/76; O2SAT 98
== END 2020-10-11 22:01 | disposition left against medical advice (07) ==
LOC: ER 21:14
DX: R11.2 Nausea with vomiting, unspecified (principal); I10 Essential (primary) hypertension; Z95.0 Presence of cardiac pacemaker
CPT/HCPCS: 93005; 99284